=== PATIENT | female | born 2005 | race Caucasian/White ===

== ENCOUNTER 2023-07-26 18:31 | Emergency (ER) | payer SELFPAY ==
--- NOTE | ~2023-07-26 | US_ITS ---
EXAMINATION: US right upper quadrant DATE: 07/26/2023 23:00 INDICATION: Epigastric abdominal pain TECHNIQUE: Multiple grayscale and Doppler ultrasound images of the abdomen were obtained. COMPARISON: None available FINDINGS: Bowel gas obscures visualization of the pancreas. The visualized portions of the pancreas a re unremarkable. The liver is normal with normal echogenicity and echotexture. No surface nodularity. Normal hepatopetal flow in the main portal vein. There are multiple stones in the nondistended gallb ladder. No gallbladder wall thickening or pericholecystic fluid. The normal common bile duct measures 5 mm. Sonographic Mckeon sign is positive. IMPRESSION: 1. Cholelithiasis and positive sonographic Mckeon sign without additional findings of acute cholecyst itis. Consider nuclear hepatobiliary scan. Reviewed, dictated and finalized at location F. IMPRESSION: 1. Cholelithiasis and positive sonographic Mckeon sign without additional findi ngs of acute cholecystitis. Consider nuclear hepatobiliary scan.
[2023-07-26 18:38] VITALS: BP 150/73; PULSE 91; RESP 18; TEMP 36.4; O2SAT 100
[2023-07-26 21:16] VITALS: BP 146/67; PULSE 70; RESP 16; TEMP 36.6; O2SAT 100
--- NOTE | 2023-07-26 21:32 | ECG_ITS ---
Measurements Intervals [place] Rate: 78 P: 27 IN: 112 QRS: 64 QRSD: 93 T: 22 QT: 358 QTc: 409 Interpretive Statements SINUS RHYTHM WITH SHORT IN INTERVAL POSSIBLE LEFT ATRIAL ENLARGEMENT MINIMAL Q WAVES- INF/LAT LEADS BASELINE ARTIFACT- I, III, AVL BORDERLINE ECG NO PREVIOUS ECG AVAILABLE FOR COMPARISON Electronically Signed On 07-27-2023 6:37:02 CDT by Laith Rizvi D.O.
--- NOTE | 2023-07-26 21:33 | ED.ABDPAIN ---
HPI - Abdominal Pain General Chief Complaint: Abdominal Pain Stated Complaint: ABD PAIN X1D Time Seen by Provider: 07/26/23 20:32 History of Present Illness HPI narrative: 18-year-old female presents to the emergency department for intermittent epigastric abdominal pain for 1 year. Patient states the pain became bad last night after she had hot she does. She describes the pain as burning . Reports shortness of breath when she is under pain. denies known aggravating or alleviating factors. States she is currently having a small amount of pain but is not having chest pain or shortness of breath, no nausea vomiting, diarrhea, dysuria or hematuria, fever. Related Data Allergies Allergy/AdvReac Type Severity Reaction Status Date / Time No Known Allergies Allergy Verified 07/26/23 21:35 Review of Systems Review of Systems: CONSTITUTIONAL: Denies fever, chills, or sweats. EYES: Denies visual changes, redness, or discharge. ENT: Denies rhinorrhea, congestion, sore throat, or otalgia. CARDIOVASCULAR: Denies chest pain, palpitations, or edema. RESPIRATORY: Denies cough or dyspnea. GASTROINTESTINAL: See HPI GENITOURINARY: Denies dysuria or hematuria. SKIN: Denies rash or itching. MUSCULOSKELETAL: Denies back pain, joint pain, or myalgia. NEUROLOGIC: Denies headache, numbness, or weakness. PSYCHIATRIC: Denies anxiety or depression. Exam Narrative: GENERAL: Well-appearing, well-nourished, and in no acute distress. HEAD: Normocephalic, atraumatic. EYES: PERRLA and EOMI. ENT: Nares clear, no rhinorrhea or epistaxis. Mucous membranes moist. NECK: Supple. CHEST: Clear to auscultation. No respiratory distress. HEART: Regular rate and rhythm. No murmur heard. Normal peripheral pulses. ABDOMEN: Soft, nontender, nondistended, normal active bowel sounds. negative Mckeon's and McBurney's. No rebound, guarding or rigidity. No CVA tenderness. EXTREMITIES: Normal range of motion. No edema. SKIN: Warm, dry, no rash. NEURO: No focal deficits. Alert and oriented x3 Course Vital Signs Vital signs: Vital Signs Temperature 97.6 F 07/26/23 18:38 Pulse Rate 91 07/26/23 18:38 Respiratory Rate 18 07/26/23 18:38 Blood Pressure 150/73 H 07/26/23 18:38 Pulse Oximetry 100 07/26/23 18:38 Oxygen Delivery Room Air 07/26/23 18:38 Temperature 97.8 F 07/26/23 21:16 Pulse Rate 70 07/26/23 21:16 Respiratory Rate 16 07/26/23 21:16 Blood Pressure 146/67 H 07/26/23 21:16 Pulse Oximetry 100 07/26/23 21:16 Oxygen Delivery Room Air 07/26/23 18:38 MDM - Abdominal Pain MDM Narrative Medical decision making narrative: 18-year-old female presents to emergency department for intermittent epigastric burning year, worse after eating hot Cheetos last night. See HPI for further history. Triage vital significant for elevated blood pressure 150/73, otherwise unremarkable. She is afebrile and nontoxic on exam. Abdomen is soft and nontender. CBC with leukocytosis of 13.1, no bandemia. Chemistries remarkable for AST 166 and ALT of 98. states she drinks alcohol once or twice every other month. Alk-phos and bilirubin are normal. Right upper quadrant ultrasound obtained which shows cholelithiasis with positive sonographic Mckeon sign. No other findings of acute cholecystitis. Discussed case with surgery on-call who feels that the patient is asymptomatic she can follow-up outpatient. However if she remains symptomatic, may have been hospital for further evaluation. Upon re-evaluation, the patient still had tenderness in her epigastrium and started having symptom redness in her right upper quadrant. I recommended admission. Pt then eloped out of the apartment. Lab Data 07/26/23 22:08 07/26/23 22:08 Labs: Lab Results 07/26/23 07/27/23 Range/Units 22:08 00:13 WBC 13.1 H (4.5-10.0) K/mm3 RBC 4.93 (4.2-5.4) M/mm3 Hgb 14.0 (12.0-15.0) g/dL Hct 42.4 (37
[2023-07-26] MEDS: BELLADONNA ALK/PHENOB ELIX 10 ML, MAG HYDROX/ALUMINUM HYD/SIMETH 30 ML, LIDOCAINE HCL 2... PO (22:10)
[2023-07-26] MEDS: FAMOTIDINE 20 MG/2 ML VIAL IV PUSH (22:10)
[2023-07-26 22:14] LABS: Basophils Absolute Auto 0.1 K/mm3 (0.0-0.1); Basophils Percent Auto 0.4 % (0.2-1.2); Eosinophils Absolute Auto 0.1 K/mm3 (0-0.3); Eosinophils Percent Auto 0.5 % (0-4.4); Hematocrit 42.4 % (37.0-47.0); Immature Granulocyte Absolute 0.03 K/mm3 (0.00-0.031); Immature Granulocyte Percent A 0.2 % (0-0.5); Lymphocytes Absolute Auto 2.13 K/mm3 (0.9-3.2); Lymphocytes Percent Auto 16.3 % (18.3-44.2); Mean Corpuscular Hemoglobin 28.4 pg (26-34); Mean Platelet Volume 10.6 fl (7.4-10.4); Monocytes Absolute Auto 0.7 K/mm3 (0.1-0.6); Neutrophils Absolute Auto 10.2 K/mm3 (1.3-6.7); Neutrophils Percent Auto 77.6 % (45.5-73.1); Platelet Count Result 290 k/mm3 (150-375); Red Blood Count 4.93 M/mm3 (4.2-5.4); Red Cell Distribution Width 12.9 % (11.5-14.5); White Blood Count 13.1 K/mm3 (4.5-10.0)
[2023-07-26 22:25] LABS: Alanine Aminotransferase 98 U/L (6-35); Alkaline Phosphatase 102 U/L (38-126); Anion Gap 8 mmol/L (8-16); Aspartate Amino Transferase 166 U/L (14-36); Bilirubin,Total 0.7 mg/dL (0.2-1.3); Blood Urea Nitrogen 15 mg/dL (7-17); Calcium 10.8 mg/dL (8.4-10.2); Carbon Dioxide 24 mmol/L (22-30); Chloride 106 mmol/L (98-107); Estimated CRCL calculation 175 ml/min; Estimated Glomerular Filt Rate > 60; Glucose 102 mg/dL (65-110); Lipase 68 U/L (23-300); Potassium 3.9 mmol/L (3.4-5.0); Sodium 138 mmol/L (137-145)
[2023-07-26 23:30] VITALS: BP 146/87; PULSE 86; RESP 20; O2SAT 99
[2023-07-27 00:21] LABS: Appearance Urine Clear (Clear); Bacteria Urine None Seen /hpf; Bilirubin Urine Negative (Negative); Blood Urine Negative (Negative); Color Urine Yellow (Yellow); Glucose Urine UA Negative (Negative); Ketones Urine Negative (Negative); Leukocyte Esterase Ur 1+ LEU/UL (Negative); Nitrate Urine Negative (Negative); Non Pathogenic Casts 0-2; Protein Urine Negative (Negative); RBC Urine 0-2 /hpf (0-2); Specific Grav Ur 1.008 (1.001-1.035); Squamous Epithelial Cell Urine Occasional /hpf (Few); pH Urine 6.5 (5.0-9.0)
[2023-07-27 00:32] LABS: Add Urine Microscopic? YES
--- NOTE | 2023-07-27 01:05 | PC.NURSE ---
Pt comes to nursing station tearful stating that her son at home misses her and she just wants to go home. This RN tells her that we are only waiting on urine results. Pt tells me that no provider has been in to explain any of her results yet. This RN made JOHN Ortez aware. Neelima to bedside to speak with pt. Neelima informs me that pt wishes to leave. Pt alert and oriented x 4, in no obvious distress. Pt encouraged to return if symptoms persist or get worse.
== END 2023-07-27 01:00 | disposition left against medical advice (07) ==
PROVIDERS: Emergency Provider Physician Assistant
DX: K80.20 Calculus of gallbladder without cholecystitis without obstruction (principal); R10.11 Right upper quadrant pain; R94.31 Abnormal electrocardiogram [ECG] [EKG]
CPT/HCPCS: 36415; 76705; 80053; 83690; 85025; 87077; 87086; 87088; 93005; 96374; 99284; A9270

== ENCOUNTER 2024-04-21 16:19 | Outpatient (RCR) | payer OTHER, SELFPAY ==
--- NOTE | ~2024-04-21 | US_ITS ---
EXAMINATION: US OB follow up DATE: 04/21/2024 17:20 INDICATION: Assess position and dating of during third trimester TECHNIQUE: Real-time ultrasound of the pelvis was performed. The interpreting radiologist was not pre sent for the study. COMPARISON: None FINDINGS: There is a single living fetus in transverse lie with vertex to maternal left. The placenta is anteri or there is peripheral echogenicity suggesting calcification which is discordant with the provided es timated gestational age but consistent with the more advanced estimated gestational age based on biom etric data in the current study. heart rate is 187-199 beats per minute (bpm). The amniotic flu id volume is subjectively normal. The following biometric data were obtained: BPD: 9.5 cm -> 38 weeks 6 days Head circumference: 35.0 cm -> 40 weeks 4 days Abdominal circumference: 34.4 cm -> 38 weeks 2 days Femur length: 7.2 cm -> 36 weeks 6 days These measurements are concordant. Head circumference to abdominal circumference ratio: 1.02 (normal range 0.88-1.06). Estimated weight: 3457 g (+/-) 519 g or 7 lbs. 10 oz. (+/-) 1 lb. 2 oz. IMPRESSION: 1. Single living fetus in transverse lie with elevated heart rate of 187-[address] Meagan day notified of these findings at 5:00 PM. As requested patient was transferred to the labor and delive ry department for further monitoring. 2. Gestational age by ultrasound of 28 weeks 5 day(s) +/- 2 week(s) 5 day(s) with ultrasound estimate d date of delivery (IKER) of 04/30/2024. Estimated weight is >97th percentile by Hadlock criteri a when 05/31/2024 is used as the IKER. Please correlate with clinical information or earlier ultrasound s for most accurate IKER. Reviewed, dictated and finalized at location A. COVERY PROJECT MANAGER IMPRESSION: 1. Single living fetus in transverse lie with elevated heart rate of 187- [address] Rhodes was notified of these findings at 5:00 PM. As requested pat ient was transferred to the labor and delivery department for further monitorin g. 2. Gestational age by ultrasound of 28 weeks 5 day(s) +/- 2 week(s) 5 day(s) wi th ultrasound estimated date of delivery (IKER) of 04/30/2024. Estimated w eight is >97th percentile by Hadlock criteria when 05/31/2024 is used as the IKER . Please correlate with clinical information or earlier ultrasounds for most ac curate IKER.
--- NOTE | 2024-04-21 17:53 | PC.NURSE ---
1748: RN phone Dr. Hawkins to inform her that a patient of Dr. Matt was sent over from outpatient ultrasound due to FHTs being in the 190s. OB is aware of patient's G's and P's, gestational age, normal with no complications, that patient has not been feeling good today, patient is a smoker, and that patient is afebrile. RN reported FHT baseline ranging between 155-165 with moderate variability and accelerations. OB also aware that patient's blood pressure was 156/75 and a minute later it was 134/72, Orders to retake a blood pressure in 15 minuted. Orders to draw PI labs if patient's next blood pressure is >140/>90 or discharge patient home if it is a normal blood pressure. If patient is discahrged home RN received orders to discharge patient home with instructions to stop smoking and PO hydrate.
[2024-04-21 18:05] VITALS: BP 136/74; PULSE 99
--- OUTSIDE RECORDS SUMMARY | 2024-05-01 19:41 | XMS_ITS | Referral Summary ---
Author Organization [facility] Address [address] [place] [address] Care Team Providers Care Esthetics Instructor Name Role Phone Unavailable Primary Care Provider Unavailabl e Source Comments [facility],non-owned Affiliates and Associated Physician Practices is amultiple site organization consisting of ambulatory clinics and hospital sitesin [place], [place], [place] and [place]. This disclosure is being madepursuant to the Care Everywhere program and may not contain all information available regarding this patient. Last updated [email or web address] Allergies No known active allergies Medications Be aware that medications may not be up to date on this document. Always verify current medications with the patient. No known medications Active Problems Problem Noted Date Diagnosed Date Left tubo-ovarian abscess 09/26/2019 Assessment & Plan (09/27/2019 1:13 PM CDT): Assessment: Ynes is a 14 y/o sexually active female presenting with left tub-ovarian abscess (TOA). Females who are hemodynamically stable and abscess is <7cm can be treated initially with antibiotics alone to avoid surgical intervention. The cause of TOA can be ascending PID, but may also occur in the absence of PID. She requires admission for IV antibiotics to monitor for improvement, which will determine future intervention. Plan: - surgery evaluated patient and did not find need for surgical intervention at this time - IVF D5 NS w/ KCl @ 100ml/hr - Regular diet - Continue Cefoxitin 2g IV Q6h PLUS Doxycycline 100mg Q12h PO/IV - Tylenol/Ibuprofen for mild pain - I&Os - Vitals Q8h Assessment & Plan (09/26/2019 8:16 PM CDT): Assessment: Ynes is a 14 y/o sexually active female presenting with left tub-ovarian abscess (TOA). Females who are hemodynamically stable and abscess is <7cm can be treated initially with antibiotics alone to avoid surgical intervention. The cause of TOA can be ascending PID, but may also occur in the absence of PID. She requires admission for IV antibiotics to monitor for improvement, which will determine future intervention. Plan: Admit to General Pediatrics, Dr. Sparrow Surgery consulted and following, will notify with any acute changes IVF D5 NS w/ KCl @ 100ml/hr Regular diet Cefoxitin 2g IV Q6h PLUS Doxycycline 100mg Q12h PO/IV Tylenol/Ibuprofen for mild pain Consider oxycodone for moderate-severe pain I&Os Vitals Q8h Social History Tobacco Use Types Packs/Day Years Used Date Smoking Tobacco: Every Day Cigarettes Smokeless Tobacco: Never Sex and Gender Information Value Date Recorded Sex Assigned at Not on file Gender Identity Not on file Sexual Orientation Not on file Last Filed Vital Signs Vital Sign Reading Time Taken Comments Blood Pressure 121/67 09/28/2019 11:55 AM CDT Pulse 78 09/28/2019 11:55 AM CDT Temperature 36.6 ??C (97.9 ??F) 09/28/2019 11:55 AM C DT Respiratory Rate 18 09/28/2019 11:55 AM CDT Oxygen Saturation 98% 09/28/2019 3:10 AM CDT Inhaled Oxygen Concentration - - Weight 65.5 kg (144 lb 6.4 oz) 09/26/2019 8:15 P M CDT Height 172.7 cm (5' 8 ) 09/26/2019 8:15 PM CDT Body Mass Index 21.96 09/26/2019 8:15 PM CDT Functional Status Functional Status Response Date of Assess ment Is person deaf or have serious hearing difficult y? No 09/27/2019 Is person blind or have serious difficulty seein g? No 09/27/2019 Does person have serious dif ficulty walking/climbing stairs? No 09/27/2019 Does person have difficulty dressing/bathing? No 09/27/2019 Does person have difficulty doing errands alone? No 09/27/2019 Cognitive Status Response Date of Assessm ent Does person have difficulty concentrating/remembering/making decisions? No 09/27/2019 Plan of Treatment Not on file Procedures Procedure Name Priority Date/Time Associated Diagnosis Comments HIV-1 HIV-2 ANTIBODY + HIV P24 AG PANEL Timed 09/28/2019 11:54 AM CDT CHLAMYDIA + GC AMPLIFIED PROBE STAT 09/26/2019 6:41 PM CDT from Last 3 Months or Most Recently Relevant to Health Maintenance Results * HIV-1 HIV-2 ANTIBODY + HIV P24 AG PANEL (09/28/2019 11:54 AM CDT) Pathologist [facility] HIV1/2 Ab + P24 Ag Non Reactive Non Reactive 09/28/2019 1:00 PM CDT [facility] Blood BLOOD SPECIMEN / Unknown Venipuncture / Unknown 09/28/2019 11:54 AM CDT 09/28/2019 12:08 PM CDT Narrative [facility] - 09/28/2019 1:00 PM CDT No Laboratory evidence of HIV infection. Nataliya Alvarez MD LAB - CHEMISTRY [place] [facility] [address] [place] [id number] * (ABNORMAL) CHLAMYDIA + GC AMPLIFIED PROBE (STL) (09/26/2019 6:41 PM CDT) [facility] Chlamydia Amplified Probe Positive( A) Negative 09/30/2019 2:44 PM CDT [facility] GC Amplified Probe Positive( A) Negative 09/30/2019 2:44 PM CDT [facility] Microbiology URINE / Unknown Collection / Unknown 09/26/2019 6:41 PM CDT 09/26/2019 6:45 PM CDT Narrative [facility] - 09/30/2019 2:44 PM CDT Results based on detection/no detection of ribosomal RNA by amplified method. Rosangela Hutchinson MD LAB - MICROBIOLOGY O RDERABLES [facility] [address] [place], [place] [address] [[email or web address]] [phone] from Last 3 Months or Most Recently Relevant to Health Maintenance Advance Directives * Full Code (Latest Code Status on File) Date Activated Date Inactivated Comments 09/26/2019 8:15 PM 09/28/2019 3:23 PM
--- OUTSIDE RECORDS SUMMARY | 2024-05-01 19:41 | XMS_ITS | Encounter Summary ---
Author Organization [facility] Address [address] [place] [address] Care Team Providers Care Dust Collector Treater Name Role Phone Unavailable Primary Care Provider Unavailabl e Reason for Visit * Reason Onset Date Comments Follow-up 10/01/2019 Encounter Details Date Type Department Care Team (Late st Contact Info) Description 10/01/2019 Telephone [facility] - [facility] rider [facility] [place] [address] Felicia Donnelly RN Follow-up Social History Tobacco Use Types Packs/Day Years Used Date Smoking Tobacco: Every Day Cigarettes Smokeless Tobacco: Never Sex and Gender Information Value Date Recorded Sex Assigned at Not on file Gender Identity Not on file Sexual Orientation Not on file documented as of this encounter Functional Status Functional Status Response Date of [...] person have difficulty concentrating/remembering/making decisions? No 09/27/2019 documented as of this encounter Miscellaneous Notes * Telephone Encounter - Felicia Donnelly RN - 10/01/2019 12:05 PM CDT Called mom to f/u on child's recent admission for tubo-ovarian cyst. It was recommended that she f/u with a fur weigher at [facility] in [place] or with Dr. Chloe Forte. Jose melo is doing well and has an appointment scheduled at [facility] in the next week. Will schedule all f/u services with them. Appreciative of follow up call documented in this encounter Plan of Treatment Not on file documented as of this encounter Visit Diagnoses Not on filedocumented in this encounter
--- OUTSIDE RECORDS SUMMARY | 2024-05-01 19:41 | XMS_ITS | Encounter Summary ---
Author Organization [facility] Address [address] [place] [address] [place] [address] Care Team Providers Care Studio Producer Name Role Phone Unavailable Primary Care Provider Unavailabl e Reason for Visit * Reason Comments Abscess Access Note: 14 yo female coming by amb from [facility] for lower abd pain x1 month, today pain is severe, Labs and imaging done. CT and US. 13.7 wbc, has a uti, 10-20 wbc in urine leukocytes, CT showed 4.4 cm solid mass around left ovary. US sone 2.7 rounded ovarian abscess. IV abx ordered. Pt arrives awake and alert. Denies pain in triage. * Auth/Cert Specialty Diagnoses / Procedures Referred By Contac t Referred To Contact Referral ID Status Reason Start Date Expiration Date Visits Re quested Visits Authorized [id number] 1 1 Encounter Details Date Type Department Care Team (Latest Contact Info) Description 09/26/2019 12:06 PM CDT - 09/28/2019 2:23 PM CDT Hospital Encounter CG 4 N HEM/ONC [address] [place] [address]. [place] [address] Katrin Rivas MD [address] [place] [address] [place] [address] Steven Sparrow MD [address] [place] [id number] Pediatrics Discharge Disposition: Home or Self Care Social History Tobacco Use Types Packs/Day Years Used Date Smoking Tobacco: Every Day Cigarettes Smokeless Tobacco: Never Sex and Gender Information Value Date Recorded Sex Assigned at Not on file Gender Identity Not on file Sexual Orientation Not on file documented as of this encounter Last Filed Vital Signs Vital Sign Reading Time Taken Comments Blood Pressure 121/67 09/28/2019 11:55 AM CDT Pulse 78 09/28/2019 11:55 AM CDT Temperature 36.6 ??C (97.9 ??F) 09/28/2019 1 1:55 AM CDT Respiratory Rate 18 09/28/2019 11:5 5 AM CDT Oxygen Saturation 98% 09/28/2019 3:10 AM CDT Inhaled Oxygen Concentration - - Weight 65.5 kg (144 lb 6.4 oz) 09/26/2019 8:15 P M CDT Height 172.7 cm (5' 8 ) 09/26/2019 8:15 PM CDT Body Mass Index 21.96 09/26/2019 8:15 PM CDT Body Mass Index Percentile 64.67% 09/26/2019 8:1 5 PM CDT Growth Chart: [facility] (Girls, 2- 20 Years) documented in this encounter Functional Status Functional Status Response [...] No 09/27/2019 documented as of this encounter Discharge Summaries * Steven Sparrow MD - 09/28/2019 1:29 PM CDT Images from the original note were not included. Pediatric Discharge Summary Attending Physician: Steven Sparrow MD Office 09/28/2019 1:29 PM Pt. Name: Ynes Phelps : 2005 Attending Physician : Steven Sparrow MD Admission Date: 09/26/2019 Discharge Date: 09/30/2019 Hospital Course Ynes is a 14yo F with no significant PMHx who presents for concerning 4.4cm L ovarian abscess onCT and US, found during episode of abdominal pain which is now resolved. Ynes was admitted for IV antibiotics (cefoxitin and doxycycline) and to monitor vitals and status. Her pain quickly improved and she remained afebrile over course of admission. She remained stable and was successfully transitioned to PO antibiotics. She will be going home on 13 days of levaquin and metronidazole PO. Trichomonas was negative and G/C is still pending. HIV Antibody was negative. RPR was negative. We are planning to call her with these results on her cellphone. If any outpatient provider would like to contact the hospital team to follow up on the STI testing results, the [facility] Inpatient Purple Team Pager is [phone]. Patient cell phone number [phone]. She is okay with parents beingaware/notified of the STI screening results. Can call Mom with STI screening results at Mom's phonenumber [phone]. She needs to follow up with gynecology outpatient within the next 12 days after discharge before her antibiotic regimen runs out, for continued monitoring of the tubo-ovarian abscess without evidence of PID and for gynecology to determine whether her antibiotic regimen needs tram extended beyond the total 14 days course. Of note, patient evaluated by peds surgery team and nosurgical intervention indicated during admission given good response to IV abx. ID also consulted on plan for PO abx with follow up. Discharge Diagnosis(es) Active Problems: Left tubo-ovarian abscess Resolved Problems: * No resolved hospital problems. * Condition on Discharge: Stable Consultations: General Surgery, ID Diagnostic studies: - See Hospital Course Procedures: See Hospital Course Relevant Labs: WBC downtrending from 13 at OSH to now 8. Consistent with clinical improvement. Discharge Physical Exam VS: BP 121/67 Pulse 78 Temp 97.9 ??F (Oral) Resp 18 Ht 1.727 m (5' 8 ) Wt 65.5 kg (144 lb 6.4 oz) SpO2 98% BMI 21.96 kg/m2 Height: 172.7 cm (5' 8 ) 94 %ile (Z= 1.54) based on CDC (Girls, 2-20 Years) [id number]-zvb data based on Stature recorded on 09/26/2019. Weight: 65.5 kg (144 lb 6.4 oz) 83 %ile (Z= 0.95) based on CDC (Girls, 2-20 Years) zanofx-uax-xog data using vitals from 09/26/2019. (Patient seen 09/28/2019 1:25 PM) General: awake, alert, no apparent distress, talkative, eating Head: normocephalic Eyes: Conjunctiva: conjunctiva normal Discharge: none Nose: normal Mouth / Oropharynx: Mucous membranes: moist Neck: Tenderness to palpation: None Cardiovascular: Rate: regular Rhythm: regular Heart sounds: normal S1, normal S2 Pulmonary: Auscultation: clear to auscultation Aeration: good aeration Wheezes: none Respiratory effort: no respiratory distress Abdominal: soft, flat Tenderness: none Distention: none HSM / Masses: no hepatosplenomegaly Musculoskeletal: Upper extremities: Swelling: none Lower extremities: Swelling: none Skin: Temp / Texture: warm Neurological: Tone: normal Pending Results Unresulted Labs (From admission, onward) Start Ordered 09/26/191814 CHLAMYDIA + GC AMPLIFIED PROBE (STL) ONCE 09/26/191809 Discharge Medications Current Discharge Medication List START taking these medications Instructions Authorizing Provider levoFLOXacin 500 MG tablet Commonly known as: LEVAQUIN Quantity Dispensed: 13 tablet Take 1 tablet by mouth once daily for 13 days Nataliya Alvarez MD metroNIDAZOLE 500 MG tablet Commonly known as: FLAGYL Quantity Dispensed: 26 tablet Take 1 tablet by mouth 2 times daily for 13 days Nataliya Alvarez MD Discharge Procedure Orders Why you were hospitalized Order Specific Question Answer Comments Your discharge diagnosis is: Tubo-ovarian abscess [785595] No special diet needed Resume normal home diet as tolerated. Activity as tolerated Rest today, and increase activity level tomorrow as tolerated. When to call provider Call Ynes's Personalized Living Manager Nurse if you have questions or concerns, or for any of the following issues: -- increased shortness of breath -- for pain that gets worse or does not get better after taking pain medication(s) as directed -- if you see a lot of bleeding from the incision or IV site -- if the incision or IV site looks infected (red, swollen, warm to the touch, or non-clear, foul-smelling drainage) -- if Ynes has nausea or vomiting or cannot eat or drink Follow up with provider If you are not able to follow up with a thermo cementing folder operator at [place], then you may follow up with Dr. Forte who is our pediatric thermo cementing folder operator. To make an appointment call [phone]. She needs to follow up with thermo cementing folder operator within 12 days before her antibiotics . Another alternative is to follow up with [facility], phone number is: . Please follow up soon with [facility] within the next 12 days before your antibiotics . Order Specific Question Answer Comments Follow Up Instructions: Please follow up with a thermo cementing folder operator for your tubo- ovarian abscess. You can[facility] with [facility] [place] [facility] in [place] Follow up with provider Order Specific Question Answer Comments Follow Up Instructions: Please follow up with your primary care provider within the next 7 days, orsooner if you are feeling worse. Nataliya Alvarez MD CC: No primary care provider on file. No primary physician on file. Phone: None Fax: None Pediatric Teaching Attending Attestation I have seen and evaluated the patient on the day of discharge during rounds. I have spoken with thepatient/patient's family and the resident team and have confirmed/revised the hospital course and physical exam, and diagnostic study findings of the resident as reflected in the above note. Discharge instructions and possible reasons to contact the PCP or to return to the ED were discussed with the family. Please refer to the team resident note for details. Steven Sparrow MD documented in this encounter Discharge Instructions * Discharge Instructions* Hailee Becker RN - 09/28/2019 12:54 PM CDT If your child has any worsening of his or her condition, please call your primary care doctor (or their exchange if after hours) or return to the ED if your primary care doctor cannot be reached. documented in this encounter Medications at Time of Discharge Medication Sig Dispensed Refills Start Date End Date levoFLOXacin (LEVAQUIN) 500 MG tablet Take 1 tablet by mouth once daily for 13 days 13 tablet 09/28/2019 10/11/2019 metroNIDAZOLE (FLAGYL) 500 MG tablet Take 1 tablet by mouth 2 times daily for 13 days 26 tablet 09/28/2019 10/11/2019 documented as of this encounter Progress Notes * Hailee Becker RN - 09/28/2019 2:20 PM CDT Discharge instructions received and reviewed with dad. Dad verbalized understanding of all instructions given and voiced no questions or concerns. Dad and pt escorted to hospital exit. * Nataliya Alvarez MD - 09/28/2019 1:23 PM CDT Condition on Discharge: Stable Consultations: General Surgery Diagnostic studies: - See Hospital Course Procedures: See Hospital Course Relevant Labs: WBC downtrending from 13 at OSH to now 8. Consistent with clinical improvement. Discharge Physical Exam VS: BP 121/67 Pulse 78 Temp 97.9 ??F (Oral) Resp 18 Ht 1.727 m (5' 8 ) Wt 65.5 kg (144 lb 6.4 oz) SpO2 98% BMI 21.96 kg/m2 Height: 172.7 cm (5' 8 ) 94 %ile (Z= 1.54) based on CDC (Girls, 2-20 Years) Hefquvi-yqo-uov data based on Stature recorded on 09/26/2019. Weight: 65.5 kg (144 lb 6.4 oz) 83 %ile (Z= 0.95) based on CDC (Girls, 2-20 Years) falghn-bpl-rlz data using vitals from 09/26/2019. (Patient seen 09/28/2019 1:25 PM) General: awake, alert, no apparent distress, talkative, eating Head: normocephalic Eyes: Conjunctiva: conjunctiva normal Discharge: none Nose: normal Mouth / Oropharynx: Mucous membranes: moist Neck: Tenderness to palpation: None Cardiovascular: Rate: regular Rhythm: regular Heart sounds: normal S1, normal S2 Pulmonary: Auscultation: clear to auscultation Aeration: good aeration Wheezes: none Respiratory effort: no respiratory distress Abdominal: soft, flat Tenderness: none Distention: none HSM / Masses: no hepatosplenomegaly Musculoskeletal: Upper extremities: Swelling: none Lower extremities: Swelling: none Skin: Temp / Texture: warm Neurological: Tone: normal * Alli Garcia MD - 09/27/2019 3:09 PM CDT Pediatric Surgery Progress Note DATE: 09/27/2019 Patient Name: Ynes Phelps : 2005 Admit Date: 09/26/2019 12:06 PM Hospital Day: Hospital Day: 1 History: Ynes Phelps is a 14 year old female with lower abdominal pain for 1 month that is dull and achey, worsened by her period or movement, and has no other alleviating or associated factors. Pain has progressively worsened until FOC and pt decided to present to OSH. ?? Workup done at OSH significant for mild leukocytosis of 13.7 with 75% PMNs, CT abdomen pelvis with 4.4cm solid-appearing structure in the left adnexa, pelvic u/s with no concerns for torsion. Subjective: - No acute events overnight - Pain improved this AM. Objective: Diet: DIET REGULAR Input and Output: IO last 3 completed shifts In: 1493 (22.8 mL/kg) [P.O.:320; I.V.:1173 (0.5 mL/kg/hr)] Out: 560 (8.5 mL/kg) [Urine:560 (0.2 mL/kg/hr)] Net: 933 Weight: 65.5 kg Vital Signs: Temp: [98.1 ??F-98.6 ??F] Pulse: [66-88] Resp: [16-18] BP: (104-126)/(46-72) SpO2: [97 %-100 %] Physical Exam: Gen: NAD HEENT: AT/NC, EOMI, oropharynx clear CV: RRR Pulm: Nonlabored respirations Abd: Soft, mildly tender in bilateral lower quadrants, R worse than L, non-peritonitic MSK: WWP, no c/c/e Neuro: Moving all extremities spontaneously, no focal deficits Psych: Appropriate mood and affect Labs: No results for input(s): WBC, HGB, HCT, PLTCOUNT in the last 17817 hours. No results for input(s): SODIUM, POTASSIUM, CHLORIDE, CO2, BUN, CREATININE, GLUCOSE, CALCIUM in thelast 88953 hours. Cultures: Trichamonas swab -ve Assessment: Ynes Phelps is a 14 year old female with likely tubo-ovarian abscess. Recommendations: - agree with diet, antibiotics - Please obtain Ped educational programming director consultation. - no surgical intervention at this time - please contact Pediatric Surgery with any questions or concerns. Nino Patel MD 09/27/2019 3:19 PM ATTENDING ATTESTATION I examined the patient and interviewed the patient and the patient's nursing staff on 09/27/2019. I have reviewed the patient's imaging studies and laboratory values. I have reviewed the care provider's note. I have edited the note where appropriate and agree with management and plan outlined in thenote. 14yF with tubo-ovarian abscess. Continue Abd. No operative intervention needed at this time. Will defer outpatient management to Pediatric Gynocology Service. . Anjel Garcia MD Pediatric Surgery * Graciela Sierra DO - 09/27/2019 1:13 PM CDT Images from the original note were not included. Pediatric Progress Note 09/27/2019 1:13 PM Assessment & Plan Left tubo-ovarian abscess Assessment: Ynes is a 14 y/o sexually active female presenting with left tub- ovarian abscess (TOA). Females who are hemodynamically stable [...] mild pain - I&Os - Vitals Q8h Subjective / Objective Clinical Course No acute events overnight. VSS. Denies pain today. Physical Exam VS: BP 105/51 Pulse 70 Temp 98.1 ??F (Oral) Resp 16 Wt 65.5 kg (144 lb 6.4 oz) General: awake, alert, no apparent distress, talkative Head: normocephalic Eyes: Conjunctiva: conjunctiva normal Scleral icterus: absent Ears: External ears: normal Nose: normal Mouth / Oropharynx: Mucous membranes: moist Oral cavity: normal Oropharynx: normal Cardiovascular: Rate: regular Rhythm: regular Heart sounds: normal S1, normal S2 Murmur: no murmur Pulses: Radial: R - 2+, L - 2+ Capillary refill: < 2 seconds Pulmonary: Auscultation: clear to auscultation Aeration: good aeration Rales: no crackles Respiratory effort: no respiratory distress Abdominal: soft, flat Tenderness: left low quadrant (to deep palpation only) Distention: none Bowel sounds: normal HSM / Masses: no hepatosplenomegaly, no masses Skin: Temp / Texture: warm Color: normal Rash: none Neurological: Orientation: oriented to person, place and time Movement: no abnormal movements Strength: normal Labs / Results Recent Results (from the past 24 hour(s)) TRICHOMONAS RAPID TEST Collection Time: 09/26/19 6:41 PM Result Value Ref Range Trichomonas Rapid Test Negative Negative G/C pending. Graciela Sierra DO Associated attestation - Steven Sparrow MD - 09/27/2019 1:44 PM CDT Attending Physician Supervisory Note Patient was seen and examined. I saw the patient with the resident, Dr. Greene agree with the resident's findings and plan. Drayden did well overnight. Afebrile. Pain improved. Taking good PO. No new complaints. Constitutional: Awake, alert, NAD Heart: normal S1/S2, no murmur, well perfused and not toxic. Lungs: Clear to Auscultation Bilaterally, not in distress. Abd: Soft, not particularly tender, non-distended, Normal bowel sounds, no organomegaly MSK: Moves all extremities well, no peripheral edema, no pain to palpation Neuro: Awake and alert. : No CVA tenderness. Skin: No bleeding or bruising. Labs: No new labs to review. A/P: I agree with resident Dr. Sierra, continues to require admission for IV abx - but thus far seemsto have had a good response to this therapy. See below for more details. Steven Sparrow MD 09/27/2019 * Graciela Sierra DO - 09/27/2019 1:09 PM CDT Clinical Course No acute events overnight. VSS. Denies pain today. Physical Exam VS: BP 105/51 Pulse 70 Temp 98.1 ??F (Oral) Resp 16 Wt 65.5 kg (144 lb 6.4 oz) General: awake, alert, no apparent distress, talkative Head: normocephalic Eyes: Conjunctiva: conjunctiva normal Scleral icterus: absent Ears: External ears: normal Nose: normal Mouth / Oropharynx: Mucous membranes: moist Oral cavity: normal Oropharynx: normal Cardiovascular: Rate: regular Rhythm: regular Heart sounds: normal S1, normal S2 Murmur: no murmur Pulses: Radial: R - 2+, L - 2+ Capillary refill: < 2 seconds Pulmonary: Auscultation: clear to auscultation Aeration: good aeration Rales: no crackles Respiratory effort: no respiratory distress Abdominal: soft, flat Tenderness: left low quadrant (to deep palpation only) Distention: none Bowel sounds: normal HSM / Masses: no hepatosplenomegaly, no masses Skin: Temp / Texture: warm Color: normal Rash: none Neurological: Orientation: oriented to person, place and time Movement: no abnormal movements Strength: normal Labs / Results Recent Results (from the past 24 hour(s)) TRICHOMONAS RAPID TEST Collection Time: 09/26/19 6:41 PM Result Value Ref Range Trichomonas Rapid Test Negative Negative G/C pending. * Nataliya Alvarez MD - 09/27/2019 1:09 PM CDT Ynes is a 14yo F with no significant PMHx who presents for concerning 4.4cm L ovarian abscess onCT and US, found during episode of abdominal pain which is now resolved. Ynes was admitted for IV antibiotics (cefoxitin and doxycycline) and to monitor vitals and status. She remained stable, andwas successfully transitioned to PO antibiotics. She will be going home on 13 days of levaquin and metronidazole PO. Trichomonas was negative and G/C is still pending. HIV Antibody and RPR were also drawn and are still pending, and need to be followed up on. We are planning to call her with these results on her cellphone. If any outpatient provider would like to contact the hospital team to follow up on the STI testing results, the [facility] Purple Team Pager is [phone]. Patient cell phone number [phone]. She needs to follow up with gynecology outpatient within the next 12 days after discharge before her antibiotic regimen runs out, for continued monitoring of thetubo-ovarian abscess without evidence of PID and for gynecology to determine whether her antibiotic regimen needs to be extended beyond the total 14 days course. * Francesca Wilson - 09/26/2019 8:16 PM CDT Chief Complaint Abscess (Access Note: 14 yo female coming by amb from [facility] ER for lower abd pain x1 month, today pain is severe, Labs and imaging done. CT and US. 13.7 wbc, has a uti, 10-20 wbc in urine leukocytes, CT showed 4.4 cm solid mass around left ovary. US sone 2.7 rounded ovarian abscess. IV abx ordered. Pt arrives awake and alert. Denies pain in triage.) History of Present Illness History provided by: Patient Ynes is a 14 y/o female with no significant PMH who presents with concerns for ovarian abscess. She states that she has had intermittent lower abdominal pain for at least the past month. The pain comes and goes. She has tried taking tylenol, which she feels did not help very much. There are really no exacerbating or relieving factors. She denies any dysuria, vaginal discharge, burning, frequency, or urgency. Pain not related to bowel movements or urination. She states that she typically has a bowel movement daily. She is sexually active and is not on any form of control with inconsistent condom use. No history of STDs. She denies any fevers. She denies any associated vomiting or diarrhea. No relation to food. She has regular periods that come every month. They usually last 5-7 days. She is currently on day 4 of her current mentrual cycle. She does have heavy bleeding and painful cramping. She was on control in the past, but did not like the way it made her feel. She presented initially to an OSH, where she had labs and imaging performed. Mild leukocytosis noted with WBC of 13. UA demonstrated WBCs. CT showed 4.4 cm solid mass around left ovary. US done and demonstrated 2.7 rounded ovarian abscess. She was transferred to ED for further evaluation and surgical consultation. She was then admitted for IV antibiotics and serial exams. Review of Systems Constitutional: (-) fever, (-) appetite change, (-) weight loss, (-) weight gain Eyes: (-) visual change ENT: Nose: (-) rhinorrhea, (-) congestion Throat: (-) mouth sores, (-) sore throat Cardiovascular: (-) chest pain, (-) syncope Respiratory: (-) cough Gastrointestinal: (-) nausea, (-) vomiting, (-) diarrhea, (-) constipation, (-) poor appetite Genitourinary: (-) decreased urine output, (-) frequency, (-) dysuria, (-) urgency, (-) hematuria, (-) vaginal discharge, (-) non-menstrual bleeding Musculoskeletal: (-) pain Skin: (-) rash Neurological: (-) headaches Allergy/Immunology: (-) seasonal allergies Physical Exam VS: BP 104/58 Pulse 88 Temp 98.2 ??F (Oral) Resp 16 Ht 1.727 m (5' 8 ) Wt 65.5 kg (144 lb 6.4 oz) SpO2 99% BMI 21.96 kg/m2 Height: 172.7 cm (5' 8 ) 94 %ile (Z= 1.54) based on CDC (Girls, 2-20 Years) Usvvlfb-yde-cll data based on Stature recorded on 09/26/2019. Weight: 65.5 kg (144 lb 6.4 oz) 83 %ile (Z= 0.95) based on CDC (Girls, 2-20 Years) hfnwkk-hoe-uot data using vitals from 09/26/2019. General: awake, alert, no apparent distress, talkative Head: normocephalic Eyes: Conjunctiva: conjunctiva normal Scleral icterus: absent Ears: External ears: normal Nose: normal Mouth / Oropharynx: Mucous membranes: moist Oral cavity: normal Oropharynx: normal Cardiovascular: Rate: regular Rhythm: regular Heart sounds: normal S1, normal S2 Murmur: no murmur Pulses: Radial: R - 2+, L - 2+ Capillary refill: < 2 seconds Pulmonary: Auscultation: clear to auscultation Aeration: good aeration Rales: no crackles Respiratory effort: no respiratory distress Abdominal: soft, flat Tenderness: none Distention: none Bowel sounds: normal HSM / Masses: no hepatosplenomegaly, no masses Skin: Temp / Texture: warm Color: normal Rash: none Neurological: Orientation: oriented to person, place and time Movement: no abnormal movements Strength: normal Labs / Results CBC with leukocytosis (WBC 13.7) and neutrophil predominance (75.6) CMP wnl UA with blood, leukocytes, protein, ketones (currently menstruating) Urine hcg negative CT abdomen/pelvis with 4.4 cm solid appearing structure correlating with the area of the left ovary, this could relate to an enlarged left ovary or a left ovarian mass. US pelvic: left ovary with tubular lobulated complex structure which demonstrates some motility, the appearence is suggestive for that of a tubo- ovarian abscess. documented in this encounter H&P Notes * Francesca Wilson - 09/26/2019 9:49 PM CDT Images from the original note were not included. Pediatric Admission Note 09/26/2019 9:49 PM Chief Complaint Abscess (Access Note: 14 yo female coming by amb from [facility] ER for lower abd pain x1 month, today pain is severe, Labs and imaging done. CT and US. 13.7 wbc, has a uti, 10-20 wbc in urine leukocytes, CT showed 4.4 cm solid mass around left ovary. US sone 2.7 rounded ovarian abscess. IV abx ordered. Pt arrives awake and alert. Denies pain in triage.) History of Present Illness History provided by: Patient Ynes is a 14 y/o female with no significant PMH who presents with concerns for ovarian abscess. She states that she has had intermittent lower abdominal pain for at least the past month. The pain comes and goes. She has tried taking tylenol, which she feels did not help very much. There are really no exacerbating or relieving factors. She denies any dysuria, vaginal discharge, burning, frequency, or urgency. Pain not related to bowel movements or urination. She states that she typically has a bowel movement daily. She is sexually active and is not on any form of control with inconsistent condom use. No history of STDs. She denies any fevers. She denies any associated vomiting or diarrhea. No relation to food. She has regular periods that come every month. They usually last 5-7 days. She is currently on day 4 of her current mentrual cycle. She does have heavy bleeding and painful cramping. She was on control in the past, but did not like the way it made her feel. She presented initially to an OSH, where she had labs and imaging performed. Mild leukocytosis noted with WBC of 13. UA demonstrated WBCs. CT showed 4.4 cm solid mass around left ovary. US done and demonstrated 2.7 rounded ovarian abscess. She was transferred to ED for further evaluation and surgical consultation. She was then admitted for IV antibiotics and serial exams. Review of Systems Constitutional: (-) fever, (-) appetite change, (-) weight loss, (-) weight gain Eyes: (-) visual change ENT: Nose: (-) rhinorrhea, (-) congestion Throat: (-) mouth sores, (-) sore throat Cardiovascular: (-) chest pain, (-) syncope Respiratory: (-) cough Gastrointestinal: (-) nausea, (-) vomiting, (-) diarrhea, (-) constipation, (-) poor appetite Genitourinary: (-) decreased urine output, (-) frequency, (-) dysuria, (-) urgency, (-) hematuria, (-) vaginal discharge, (-) non-menstrual bleeding Musculoskeletal: (-) pain Skin: (-) rash Neurological: (-) headaches Allergy/Immunology: (-) seasonal allergies Physical Exam VS: BP 104/58 Pulse 88 Temp 98.2 ??F (Oral) Resp 16 Ht 1.727 m (5' 8 ) Wt 65.5 kg (144 lb 6.4 oz) SpO2 99% BMI 21.96 kg/m2 Height: 172.7 cm (5' 8 ) 94 %ile (Z= 1.54) based on CDC (Girls, 2-20 Years) [id number] data based on Stature recorded on 09/26/2019. Weight: 65.5 kg (144 lb 6.4 oz) 83 %ile (Z= 0.95) based on [facility] (Girls, 2-20 Years) [id number] data using vitals from 09/26/2019. General: awake, alert, no apparent distress, talkative Head: normocephalic Eyes: Conjunctiva: conjunctiva normal Scleral icterus: absent Ears: External ears: normal Nose: normal Mouth / Oropharynx: Mucous membranes: moist Oral cavity: normal Oropharynx: normal Cardiovascular: Rate: regular Rhythm: regular Heart sounds: normal S1, normal S2 Murmur: no murmur Pulses: Radial: R - 2+, L - 2+ Capillary refill: < 2 seconds Pulmonary: Auscultation: clear to auscultation Aeration: good aeration Rales: no crackles Respiratory effort: no respiratory distress Abdominal: soft, flat Tenderness: none Distention: none Bowel sounds: normal HSM / Masses: no hepatosplenomegaly, no masses Skin: Temp / Texture: warm Color: normal Rash: none Neurological: Orientation: oriented to person, place and time Movement: no abnormal movements Strength: normal Labs / Results CBC with leukocytosis (WBC 13.7) and neutrophil predominance (75.6) CMP wnl UA with blood, leukocytes, protein, ketones (currently menstruating) Urine hcg negative CT abdomen/pelvis with 4.4 cm solid appearing structure correlating with the area of the left ovary, this could relate to an enlarged left ovary or a left ovarian mass. US pelvic: left ovary with tubular lobulated complex structure which demonstrates some motility, the appearence is suggestive for that of a tubo- ovarian abscess. History Past Medical History: Diagnosis Date ??? No known problems Past Surgical History: Procedure Laterality Date ??? NEGATIVE SURGICAL HISTORY Family History Problem Relation Name Age of Onset ??? Cancer - Ovarian Neg Hx ??? Cancer - Breast Neg Hx Social History Tobacco Use ??? Smoking status: Current Every Day Smoker Packs/day: 0.25 Types: Cigarettes ??? Smokeless tobacco: Never Used Substance Use Topics ??? Alcohol use: Not on file ??? Drug use: Yes Frequency: 7.0 times per week Types: Marijuana Social History Social History Narrative ??? Not on file No history on file. Allergies Patient has no known allergies. Immunizations stated as current, but no records available Medications Prior to Visit Assessment & Plan Left tubo-ovarian abscess Assessment: Ynes is a 14 y/o sexually active female presenting with left tub- ovarian abscess (TOA). Females who are hemodynamically stable [...] oxycodone for moderate-severe pain I&Os Vitals Q8h Francesca Wilson MD Associated attestation - Steven Sparrow MD - 09/27/2019 1:30 PM CDT Images from the original note were not included. Attending Attestation Date of Service: 09/27/2019 Ynes was seen, examined, and her condition discussed on rounds with the resident/student team. In brief, previously healthy 14 year old female presenting with abdominal pain and likely left tuboovarian abscess. Exam: My exam is as noted in Progress Note from today (09/27/2019). The treatment plan was discussed with team and is as noted in updated Assessment & Plan in Progress Note from today (09/27/2019). Steven Sparrow MD documented in this encounter Consult Notes * David Conn MD - 09/26/2019 3:49 PM CDTAssociated Order(s): IP CONSULT TO PEDIATRIC SURGERY Pediatric Surgery Consult Note Encounter Date: 09/26/2019 Ynes Phelps is a 14 year old female who was referred by [facility] ED for evaluation of abdominal pain,possible tubo-ovarian abscess Patient Identification Patient's Primary Care Physician: No primary care provider on file. Name: Ynes Phelps Age: [age] year old Sex: female Patient information was obtained from patient. History/Exam limitations: none. Patient presented to [facility] ED as transfer from OSH ([facility] [place]). Chief Complaint/Reason for Consult: Abscess (Access Note: 14 yo female coming by amb from [facility] for lower abd pain x1 month, today pain is severe, Labs and imaging done. CT and US. 13.7 wbc, has a uti, 10-20 wbc in urine leukocytes, CT showed 4.4 cm solid mass around left ovary. US sone 2.7 rounded ovarian abscess. IV abx ordered. Pt arrives awake and alert. Denies pain in triage.) History of Present Illness: Ynes Phelps is a 14 year old female with lower abdominal pain for 1 month that is dull and achey, worsened by her period or movement, and has no other alleviating or associated factors. Pain has progressively worsened until [facility]OC and pt decided to present to OSH. Workup done at OSH significant for mild leukocytosis of 13.7 with 75% PMNs, CT abdomen pelvis with 4.4cm solid-appearing structure in the left adnexa, pelvic u/s with PMH: No chronic illnesses Meds: No daily meds Allergies: no known drug allergies PSH: No surgeries SocHx: Sexually active, no control or prophylactic use No past medical history on file. No current facility-administered medications on file prior to encounter. No current outpatient medications on file prior to encounter. No Known Allergies No past surgical history on file. Social History Socioeconomic History ??? Marital status: Single Spouse name: Not on file ??? Number of children: Not on file ??? Years of education: Not on file ??? Highest education level: Not on file Occupational History ??? Not on file Social Needs ??? Financial resource strain: Not on file ??? Food insecurity Worry: Not on file Inability: Not on file ??? Transportation needs Medical: Not on file Non-medical: Not on file Tobacco Use ??? Smoking status: Current Every Day Smoker Packs/day: 0.25 Types: Cigarettes ??? Smokeless tobacco: Never Used Substance and Sexual Activity ??? Alcohol use: Not on file ??? Drug use: Yes Frequency: 7.0 times per week Types: Marijuana ??? Sexual activity: Not on file Lifestyle ??? Physical activity Days per week: Not on file Minutes per session: Not on file ??? Stress: Not on file Relationships ??? Social connections Talks on phone: Not on file Gets together: Not on file Attends hoahaoism service: Not on file Active member of club or organization: Not on file Attends meetings of clubs or organizations: Not on file Relationship status: Not on file ??? Intimate partner violence Fear of current or ex partner: Not on file Emotionally abused: Not on file Physically abused: Not on file Forced sexual activity: Not on file Other Topics Concern ??? Special Diet Not Asked Social History Narrative ??? Not on file No family history on file. Social History Socioeconomic History ??? Marital status: Single Spouse name: Not on file ??? Number of children: Not on file ??? Years of education: Not on file ??? Highest education level: Not on file Occupational History ??? Not on file Social Needs ??? Financial resource strain: Not on file ??? Food insecurity Worry: Not on file Inability: Not on file ??? Transportation needs Medical: Not on file Non-medical: Not on file Tobacco Use ??? Smoking status: Current Every Day Smoker Packs/day: 0.25 Types: Cigarettes ??? Smokeless tobacco: Never Used Substance and Sexual Activity ??? Alcohol use: Not on file ??? Drug use: Yes Frequency: 7.0 times per week Types: Marijuana ??? Sexual activity: Not on file Lifestyle ??? Physical activity Days per week: Not on file Minutes per session: Not on file ??? Stress: Not on file Relationships ??? Social connections Talks on phone: Not on file Gets together: Not on file Attends hoahaoism service: Not on file Active member of club or organization: Not on file Attends meetings of clubs or organizations: Not on file Relationship status: Not on file ??? Intimate partner violence Fear of current or ex partner: Not on file Emotionally abused: Not on file Physically abused: Not on file Forced sexual activity: Not on file Other Topics Concern ??? Special Diet Not Asked Social History Narrative ??? Not on file Review of Systems Constitutional: As per HPI Eyes: Negative for visual changes CV: Negative for chest pain Pulm: Negative for dyspnea GI: As per HPI : Negative for dysuria, hematuria; Positive for heavy menses MSK: Negative for myalgias, arthralgias Skin: Negative for skin changes Neuro: Negative for weakness Remainder of ROS negative unless documented in HPI Physical Examination: BP 104/60 Pulse 66 Temp 98.4 ??F (Oral) Resp 16 Ht 1.727 m (5' 8 ) Wt 65.5 kg (144 lb 6.4 oz) SpO2 97% BMI 21.96 kg/m2 Gen: NAD HEENT: AT/NC, EOMI, oropharynx clear CV: RRR Pulm: Nonlabored respirations Abd: Soft, tender to palpation in lower quadrants, L worse than R MSK: WWP, no c/c/e Neuro: Moving all extremities spontaneously, no focal deficits Psych: Appropriate mood and affect Imaging Studies: CT abd/pelvis without contrast: (image and reads from OSH): Impression: - No CT evidence of obstructive uropathy or acute inflammatory process - Findings which may relate to mesenteric adenitis - There is a 4.4cm solid-appearing structure correlating with the area of the L ovary, this could relate to an enlarged left ovary or a left ovarian mass. Assessment/Plan: Ynes Phelps is a 14 year old female with likeyl tubo-ovarian abscess. - admit to Pediatrics, would agree with Pediatric gynecology consult - agree with IV antibiotics - No surgical intervention planned at this time - Please call Pediatric Surgery with any questions or complaints Patient seen and examined with my in-housekeeper supervisor, Dr. Lau, and discussed with attending, Dr. Conn. Nino Patel MD 09/26/2019 6:36 PM Attending Addendum I have personally seen and examined and reviewed the chart of Ynes Phelps and have independently reviewed and discussed, in detail, the treatment plan for this patient with our surgical team and thefamily. I confirm the segura elements of the plan of care. I spent 20 minutes with this patient and 50% of that time was spent in care coordination and counseling David Conn MD 10/02/2019 2:15 PM documented in this encounter ED Notes * Filomena Asencio RN - 09/26/2019 4:24 PM CDT This RN spoke with pt's dad, Mary Grace, who said he was on his way back to the hospital right now. * Katrin Rivas - 09/26/2019 2:19 PM CDT Provider contact with the patient: 09/26/2019 2:19 PM [facility] EMERGENCY DEPARTMENT Ynes Phelps [id number] History Chief Complaint Patient presents with ??? Abscess Access Note: 14 yo female coming by amb from [facility] ER for lower abd pain x1 month, today pain is severe, Labs and imaging done. CT and US. 13.7 wbc, has a uti, 10-20 wbc in urine leukocytes, CT showed 4.4 cm solid mass around left ovary. US sone 2.7 rounded ovarian abscess. IV abx ordered. Pt arrives awake and alert. Denies pain in triage. Chief complaint narrative was entered by triage nurse, not by physician. I have read the resident/medical student/ASIAN STUDIES PROFESSOR history. Unless appended by me below, I agree with findings as documented. HPI History provided per: pt and father Ynes Phelps is a 14 year old female with no significant past medical history who presents with concern for L tubo ovarian abscess. Pt presented to an OSH ED this morning due to bilateral lower abdominal pain that has been intermittent for the past 2-3 weeks. The pain comes on randomly and lasts for minutes to hours. Nothing makes it feel better. She has tried taking Tylenol and ibuprofen for thepain, which did not help. The pain felt worse this morning, and she was doubled over crying. No vomiting or fevers. Pt has not had a bowel movement since two days ago, and her BM two days ago was hard (she normally has soft daily BMs). Her appetite has been normal. She denies dysuria or change in ur inary frequency. She currently has her menstrual period, but her abdominal pain feels different than her typical menstrual cramps. She denies any other vaginal discharge and denies any history of sexual activity. At the OSH ED, pt's labs were notable for a mildly elevated WBC count of 13.7 (75% neutrophils), CMP was unremarkable, UA +10-20 WBCs and a few RBCs, urine hcg neg, GC/CT pending, CT abdomen/pelvis showed a 4.4 cm solid-appearing structure in the area of the L ovary, and a pelvic US showed a 5 cm tubular lobulated complex structure suggestive of a tubo ovarian abscess. Pt received a dose of IV doxycycline. Pt was then transferred to the ED for further management. Currently, she denies abdominal pain. PMH: no chronic illnesses; no hospitalizations; no surgeries; all immunizations up-to-date per father. No Known Allergies Past Medical History: Diagnosis Date ??? No known problems Social History Socioeconomic History ??? Marital status: Single Spouse name: Not on file ??? Number of children: Not on file ??? Years of education: Not on file ??? Highest education level: Not on file Occupational History ??? Not on file Social Needs ??? Financial resource strain: Not on file ??? Food insecurity Worry: Not on file Inability: Not on file ??? Transportation needs Medical: Not on file Non-medical: Not on file Tobacco Use ??? Smoking status: Current Every Day Smoker Packs/day: 0.25 Types: Cigarettes ??? Smokeless tobacco: Never Used Substance and Sexual Activity ??? Alcohol use: Not on file ??? Drug use: Yes Frequency: 7.0 times per week Types: Marijuana ??? Sexual activity: Not on file Lifestyle ??? Physical activity Days per week: Not on file Minutes per session: Not on file ??? Stress: Not on file Relationships ??? Social connections Talks on phone: Not on file Gets together: Not on file Attends hoahaoism service: Not on file Active member of club or organization: Not on file Attends meetings of clubs or organizations: Not on file Relationship status: Not on file ??? Intimate partner violence Fear of current or ex partner: Not on file Emotionally abused: Not on file Physically abused: Not on file Forced sexual activity: Not on file Other Topics Concern ??? Special Diet Not Asked Social History Narrative ??? Not on file Family History Problem Relation Name Age of Onset ??? Cancer - Ovarian Neg Hx ??? Cancer - Breast Neg Hx Discharge Medication List as of 09/28/2019 12:54 PM START taking these medications Details levoFLOXacin (LEVAQUIN) 500 MG tablet Disp-13 tablet, R-0, Take 1 tablet by mouth once daily for 13days, Print metroNIDAZOLE (FLAGYL) 500 MG tablet Disp-26 tablet, R-0, Take 1 tablet by mouth 2 times daily for 13 days, Print Review of Systems All relevant systems reviewed and all negative except as noted in resident/medical student/ASIAN STUDIES PROFESSOR and attending HPI/ROS. Gen: negative Skin: negative HEENT: negative CV: negative Resp: negative GI: +lower abdominal pain Musculoskeletal: negative Neurologic: negative Psychiatric: negative Physical Exam I have reviewed the resident/medical student/ASIAN STUDIES PROFESSOR physical exam. Unless appended by me below, I agreewith the PE as documented. Vitals: 09/27/19 1940 09/28/19 0310 09/28/19 0810 09/28/19 1155 BP: 130/70 120/53 113/51 121/67 Pulse: (!) 110 78 68 78 Resp: 18 16 16 18 Temp: 98.8 ??F (37.1 ??C) 98.2 ??F (36.8 ??C) 98.1 ??F (36.7 ??C) 97.9 ??F (36.6 ??C) SpO2: 97% 98% Weight: Height: Constitutional: adolescent female in NAD HEENT: head NC/AT, PERRL, no drainage from ears or nose, MMM, oropharynx not injected Cardiovascular: RRR, no murmur Pulmonary: Normal respiratory effort. Breath sounds clear and equal bilaterally; no wheezing, rales, or rhonchi. Abdominal: soft, nondistended, +mild tenderness to palpation in suprapubic area, +mild tenderness to palpation in RLQ, no tenderness to palpation in LLQ Extremities: WWP Neurological: alert, follows commands, responds to questions, moves all four extremities well Skin: No rash or lesions. Nursing notes and vitals reviewed. Procedures Procedures Labs/Orders Orders Placed This Encounter ??? CHLAMYDIA + GC AMPLIFIED PROBE (STL) ??? TRICHOMONAS RAPID TEST ??? CBC W AUTO DIFFERENTIAL ??? C-REACTIVE PROTEIN ??? HIV-1 HIV-2 ANTIBODY + HIV P24 AG PANEL ??? SYPHILIS ANTIBODY CASCADING REFLEX ??? IP CONSULT TO PEDIATRIC SURGERY ??? DISCONTD: dextrose 5% and 0.9% NaCl with KCL 20 mEq infusion ??? DISCONTD: cefTRIAXone (ROCEPHIN) pediatric IV 2,000 mg ??? cefOXitin (MEFOXIN) pediatric IV 2,000 mg ??? DISCONTD: doxycycline hyclate (VIBRAMYCIN) 100 mg in 0.9% NaCl pediatric IV ??? DISCONTD: cefOXitin (MEFOXIN) pediatric IV 2,000 mg ??? DISCONTD: doxycycline monohydrate capsule 100 mg ??? levoFLOXacin (LEVAQUIN) 500 MG tablet ??? metroNIDAZOLE (FLAGYL) 500 MG tablet No orders to display Hospital Encounter on 09/26/19 TRICHOMONAS RAPID TEST Result Value Ref Range Trichomonas Rapid Test Negative Negative CBC W AUTO DIFFERENTIAL Result Value Ref Range WBC 8.6 4.5 - 14.5 x10E9/L WBC Corrected RBC 3.91 (L) 4.10 - 5.10 x10E12/L Hemoglobin 11.0 (L) 12.0 - 16.0 gm/dL Hematocrit 34.6 (L) 36.0 - 47.0 % MCV 88.5 78.0 - 98.0 fl MCH 28.1 25.0 - 35.0 pg MCHC 31.8 31.0 - 37.0 gm/dL Platelet Count 228 100 - 400 x10E9/L RDW-CV 13.9 11.5 - 14.0 % MPV 10.8 (H) 6.0 - 9.5 fl Neutrophils % 67.1 (H) 24.0 - 66.0 % Lymphocytes % 23.9 22.0 - 61.0 % Monocytes % 7.5 3.0 - 15.0 % Eosinophils % 0.9 0.0 - 10.0 % Basophils % 0.3 % Immature Granulocytes 0.3 % Neutrophil Absolute 5.77 1.08 - 9.57 x10E9/L Lymphocytes Absolute 2.06 0.99 - 8.85 x10E9/L Monocytes Absolute 0.65 0.14 - 2.18 x10E9/L Eosinophils Absolute 0.08 0 - 1.45 x10E9/L Basophils Absolute 0.03 0 - 0.29 x10E9/L Immature Granulocytes Absolute 0.03 0 - 0.15 x10E9/L nRBC Auto 0 /100 WBC C-REACTIVE PROTEIN Result Value Ref Range C-Reactive Protein 2.50 (H) <=0.50 mg/dL HIV-1 HIV-2 ANTIBODY + HIV P24 AG PANEL Result Value Ref Range HIV1/2 Ab + P24 Ag Non Reactive Non Reactive SYPHILIS ANTIBODY CASCADING REFLEX Result Value Ref Range Treponema pallidum Antibody Non Reactive Non Reactive ED Course Initial Assessment & Plan: 14 year old female with no significant past medical history who presents with concern for L tubo ovarian abscess. Pt has already had labs and imaging at the [facility] ED. Will consult the surgery team for evaluation. Surgery team recommends continued treatment for PID (pt will need to receive ceftriaxone in addition to doxycycline) and admission to pediatrics for pain control and close monitoring of clinical status. Surgery will continue to follow pt on the inpatient floor. Medical Decision Making Differential Diagnosis: tubo ovarian abscess versus PID versus ovarian cyst Medical Decision Making The total time providing critical care (excluding time spent for procedures) was: 0 minutes. Clinical Impression and Disposition Final Diagnosis: Final diagnoses: Left tubo-ovarian abscess * Rosangela Hutchinson MD - 09/26/2019 1:50 PM CDT EMERGENCY DEPARTMENT 09/26/2019 Dear Doctor, We had the pleasure of caring for your patient, Ynes Phelps in our emergency department on 09/26/2019. A note from the provider(s) who cared for your patient is attached. Should you wish to access any laboratory results, please call . Should you wish to access any radiology results, please call , option 3. In addition, you can access patient information 24 hours a day, from any computer, through [employer], the online version of our electronic medical record. If you would like to use this service, please call Pratibha Mckeon, Connectivity Coordinator, at . We appreciate the opportunity to care for your patients. If you would like additional information, please call the emergency department directly at . Sincerely, Rosangela Hutchinson MD Division of Emergency Medicine [facility], [place] [facility] [place] EMERGENCY DEPARTMENT Ynes Phelps [id number] [facility] EMERGENCY DEPT History Chief Complaint Patient presents with ??? Abscess Access Note: 14 yo female coming by amb from [facility] ER for lower abd pain x1 month, today pain is severe, Labs and imaging done. CT and US. 13.7 wbc, has a uti, 10-20 wbc in urine leukocytes, CT showed 4.4 cm solid mass around left ovary. US sone 2.7 rounded ovarian abscess. IV abx ordered. Pt arrives awake and alert. Denies pain in triage. HPI Previously healthy 14 y/o female transferred from OSH due to concern for ovarian abscess. Pt reports symptoms initially began with abdominal pain that has been going on for a few weeks. Located bilateral lower abdomen, comes and goes. No exacerbating or alleviating factors. Can last from 10 minutesto hours. Tried ibuprofen and tylenol, didn't help. No dysuria, no malodorous urine, frequency, urgency. No vomiting or diarrhea. Has some constipation. Last BM 2 days ago. Typically has BM everyday.Pain improves slightly after bowel movement. Good PO. No fevers. No cough, congestion. Periods are regular--come monthly, typically last 7 days, has significant cramping with them. Current abdominal pain feels different than normal menstrual cramps. Currently menstruating. Is sexually active and does not consistently use protection. Denies any abnormal discharge. No history of STDs. OSH work up: CBC with leukocytosis (WBC 13.7) and neutrophil predominance (75.6) CMP wnl UA with blood, leukocytes, protein, ketones (currently menstruating) Urine hcg negative CT abdomen/pelvis with 4.4 cm solid appearing structure correlating with the area of the left ovary, this could relate to an enlarged left ovary or a left ovarian mass. US pelvic: left ovary with tubular lobulated complex structure which demonstrates some motility, the appearence is suggestive for that of a tubo- ovarian abscess. Received doxycyline at OSH No pmh. No surgeries. IUTD. No past medical history on file. No past surgical history on file. Social History Socioeconomic History ??? Marital status: Not on file Spouse name: Not on file ??? Number of children: Not on file ??? Years of education: Not on file ??? Highest education level: Not on file Occupational History ??? Not on file Social Needs ??? Financial resource strain: Not on file ??? Food insecurity Worry: Not on file Inability: Not on file ??? Transportation needs Medical: Not on file Non-medical: Not on file Tobacco Use ??? Smoking status: Current Every Day Smoker Packs/day: 0.25 Types: Cigarettes ??? Smokeless tobacco: Never Used Substance and Sexual Activity ??? Alcohol use: Not on file ??? Drug use: Yes Frequency: 7.0 times per week Types: Marijuana ??? Sexual activity: Not on file Lifestyle ??? Physical activity Days per week: Not on file Minutes per session: Not on file ??? Stress: Not on file Relationships ??? Social connections Talks on phone: Not on file Gets together: Not on file Attends hoahaoism service: Not on file Active member of club or organization: Not on file Attends meetings of clubs or organizations: Not on file Relationship status: Not on file ??? Intimate partner violence Fear of current or ex partner: Not on file Emotionally abused: Not on file Physically abused: Not on file Forced sexual activity: Not on file Other Topics Concern ??? Special Diet Not Asked Social History Narrative ??? Not on file Medications No current outpatient medications on file. Review of Systems Review of Systems Constitutional: Negative for activity change, appetite change and fever. HENT: Negative for congestion and sore throat. Eyes: Negative for discharge. Respiratory: Negative for cough. Cardiovascular: Negative for chest pain. Gastrointestinal: Positive for abdominal pain and constipation. Negative for diarrhea, nausea and vomiting. Genitourinary: Negative for hematuria and vaginal discharge. Musculoskeletal: Negative for myalgias. Skin: Negative for rash. Neurological: Negative for headaches. BP 122/70 Pulse 76 Temp 98 ??F (36.7 ??C) (Oral) Resp 20 Ht 172.7 cm (68 ) Wt 65.5 kg (144 lb 6.4 oz) LMP 08/23/2019 (Exact Date) SpO2 98% BMI 21.96 kg/m?? Physical Exam Physical Exam HENT: Head: Normocephalic. Right Ear: External ear normal. Left Ear: External ear normal. Nose: Nose normal. Mouth/Throat: Mouth: Mucous membranes are moist. Eyes: Extraocular Movements: Extraocular movements intact. Conjunctiva/sclera: Conjunctivae normal. Pupils: Pupils are equal, round, and reactive to light. Neck: Musculoskeletal: Normal range of motion. Cardiovascular: Rate and Rhythm: Normal rate and regular rhythm. Pulmonary: Effort: Pulmonary effort is normal. Breath sounds: Normal breath sounds. Abdominal: General: Abdomen is flat. Bowel sounds are normal. Palpations: Abdomen is soft. Tenderness: There is abdominal tenderness. There is no guarding or rebound. Comments: Mild suprapubic tenderness Musculoskeletal: Normal range of motion. Skin: General: Skin is warm and dry. Capillary Refill: Capillary refill takes less than 2 seconds. Findings: No rash. Neurological: Mental Status: She is alert. Procedures Procedures Lab/SPO2 Interpretation Progress Notes ED Course 14 y/o F transferred from OSH due to concern for L tubo-ovarian abscess. Labs and imaging from OSH as above. Pt overall well appearing on exam. Vitals stable. - GC/chlamydia, trich - surgery consult - NPO for now 3:17 PM Spoke with surgery. They will come to ER to evaluate her. 6:00 PM Surgery recommends admission for IV antibiotics. No surgical intervention needed at this time. - start cefoxitin and doxycycline - can have regular diet - admit to Gen Peds, Surgery will follow. Call surgery for any acute changes (acutely worsening pain, hemodynamically unstable, etc). - recommend [employer] consult in AM 6:25 PM Discussed with floor team. Admit to Gen Peds Clinical Impressions as of Sep 25 1925 Left tubo-ovarian abscess Medical Decision Making * Geetha Sam RN - 09/26/2019 1:05 PM CDT This RN received telephone report from EVIE Chen at [facility]. Pt is 14 yo F with 2-week hx of abdominal pain. Reports 0/10 pain at rest, but pain worsens with movement. Labs sent. WBC 13.7. Per EVIE Chen, pt is currently on her period. US transvaginal and abdominal completed and results showed Lovarian abscess. Pt given doxycycline and cefotan IV through 20 g peripheral IV access. VS as follows: HR 67, BP 108/45, SpO2 99% RA. Pt coming via EMS. documented in this encounter Plan of Treatment Not on file documented as of this encounter Procedures Procedure Name Priority Date/Time Associated Diagnosis Comments SYPHILIS ANTIBODY CASCADING REFLEX Timed 09/28/2019 11:54 AM CDT HIV-1 HIV-2 ANTIBODY + HIV P24 AG PANEL Timed 09/28/2019 11:54 AM CDT C-REACTIVE PROTEIN Routine 09/28/2019 7: 49 AM CDT CBC W AUTO DIFFERENTIAL Routine 09/28/2019 7:49 AM CDT CHLAMYDIA + GC AMPLIFIED PROBE STAT 09/26/2019 6:41 PM CDT TRICHOMONAS RAPID TEST STAT 09/26/2019 6:41 PM CDT documented in this encounter Results * SYPHILIS ANTIBODY CASCADING REFLEX (09/28/2019 11:54 AM CDT) Treponema pallidum Antibody Non Reactive Non Reactive 09/28/2019 7:31 PM CDT [facility] Comment: No Laboratory evidence of syphilis infection. ?? Note: ??Circulating antibodies may be low or undetectable in early infection. ??If recent exposure is suspected, re-draw sample in 2-4 weeks and repeat testing. Blood BLOOD SPECIMEN / Unknown Venipuncture / Unknown 09/28/2019 11:54 AM CDT 09/28/2019 12:08 PM CDT Nataliya Alvarez MD LAB - SEROLOGY ORDER MELI [facility] [address] [place] [address] * HIV-1 HIV-2 ANTIBODY + HIV P24 AG PANEL (09/28/2019 11:54 AM CDT) HIV1/2 Ab + P24 Ag Non Reactive Non Reactive 09/28/2019 1:00 PM CDT [facility] Blood BLOOD SPECIMEN / Unknown Venipuncture / Unknown 09/28/2019 11:54 AM CDT 09/28/2019 12:08 PM CDT Narrative [facility] - 09/28/2019 1:00 PM CDT No Laboratory evidence of HIV infection. Nataliya Alvarez MD LAB - CHEMISTRY [place] Performing Organization Address [facility]/ZIP Co de Phone Number [facility] [address] [place] [address] * (ABNORMAL) C-REACTIVE PROTEIN (09/28/2019 7:49 AM CDT) C-Reactive Protein 2.50(H) <=0.50 mg/dL 09/28/2019 8:49 AM T [facility] Blood BLOOD SPECIMEN / Unknown Lab Venipuncture / Unknown 09/28/2019 7:49 AM CDT 09/28/2019 8:08 AM CDT Virgie Garcia MD LAB - CHEMISTRY [place] Performing Organization Address [facility] Co de Phone Number [facility] [address] [place] [phone] * (ABNORMAL) CBC W AUTO DIFFERENTIAL (09/28/2019 7:49 AM CDT) WBC 8.6 4.5 - 14.5 x10E9/L 09/28/2019 8:27 AM T [facility] WBC Corrected 09/28/2019 8:27 AM T [facility] RBC 3.91(L) 4.10 - 5.10 x10E12/L 09/28/2019 8:27 AM T [facility] Hemoglobin 11.0(L) 12.0 - 16.0 gm/dL 09/28/2019 8:27 AM T [facility] Hematocrit 34.6(L) 36.0 - 47.0 % 09/28/2019 8:27 AM T [facility] MCV 88.5 78.0 - 98.0 fl 09/28/2019 8:27 AM T [facility] MCH 28.1 25.0 - 35.0 pg 09/28/2019 8:27 AM T [facility] MCHC 31.8 31.0 - 37.0 gm/dL 09/28/2019 8:27 AM T [facility] Platelet Count 228 100 - 400 x10E9/L 09/28/2019 8:27 AM [facility] RDW-CV 13.9 11.5 - 14.0 % 09/28/2019 8:27 AM [facility] MPV 10.8(H) 6.0 - 9.5 fl 09/28/2019 8:27 AM [facility] Neutrophils % 67.1(H) 24.0 - 66.0 % 09/28/2019 8:27 AM [facility] Lymphocytes % 23.9 22.0 - 61.0 % 09/28/2019 8:27 AM [facility] Monocytes % 7.5 3.0 - 15.0 % 09/28/2019 8:27 AM [facility] Eosinophils % 0.9 0.0 - 10.0 % 09/28/2019 8:27 AM [facility] Basophils % 0.3 % 09/28/2019 8:27 AM [facility] Immature Granulocytes 0.3 % 09/28/2019 8:27 AM [facility] Neutrophil Absolute 5.77 1.08 - 9.57 x10E9/L 09/28/2019 8:27 AM [facility] Lymphocytes Absolute 2.06 0.99 - 8.85 x10E9/L 09/28/2019 8:27 AM [facility] Monocytes Absolute 0.65 0.14 - 2.18 x10E9/L 09/28/2019 8:27 AM [facility] Eosinophils Absolute 0.08 0 - 1.45 x10E9/L 09/28/2019 8:27 AM [facility] Basophils Absolute 0.03 0 - 0.29 x10E9/L 09/28/2019 8:27 AM [facility] Immature Granulocytes Absolute 0.03 0 - 0.15 x10E9/L 09/28/2019 8:27 AM [facility] nRBC Auto 0 /100 WBC 09/28/2019 8:27 AM [facility] Blood BLOOD SPECIMEN / Unknown Lab Venipuncture / Unknown 09/28/2019 7:49 AM T 09/28/2019 8:08 AM T Virgie Garcia MD LAB - HEMATOLOGY ORD ERABLES Performing Organization Address [facility] Co de Phone Number [facility] [address] [place] [phone] * TRICHOMONAS RAPID TEST (09/26/2019 6:41 PM CDT) Trichomonas Rapid Test Negative Negative 09/26/2019 7:15 PM CDT [facility] Microbiology VAGINAL SWAB / Unknown Collection / Unknown 09/26/2019 6:41 PM CDT 09/26/2019 6:47 PM CDT Rosangela Hutchinson MD LAB - MICROBIOLOGY O RDERABLES Performing Organization Address [facility] de Phone Number [facility] [address] [place] [phone] * (ABNORMAL) CHLAMYDIA + GC AMPLIFIED PROBE (STL) (09/26/2019 6:41 PM CDT) Chlamydia Amplified Probe Positive( A) Negative 09/30/2019 2:44 PM CDT [facility] GC Amplified Probe Positive( A) Negative 09/30/2019 2:44 PM CDT [facility] Microbiology URINE / Unknown Collection / Unknown 09/26/2019 6:41 PM CDT 09/26/2019 6:45 PM CDT Narrative [facility] - 09/30/2019 2:44 PM CDT Results based on detection/no detection of ribosomal RNA by amplified method. Rosangela Hutchinson MD LAB - MICROBIOLOGY O RDERADARLENE Performing Organization Address [facility] Co de Phone Number [facility] [address] [place] [address], [facility] [phone] documented in this encounter Visit Diagnoses Diagnosis Left tubo-ovarian abscess Left tubo-ovarian abscess * Assessment & Plan Note - Graciela Sierra DO - 09/27/2019 1:12 PM CDTAssociated Problem(s): Left tubo-ovarian abscess Assessment: Ynes is a 14 y/o sexually active female presenting with left tub- ovarian abscess (TOA). Females who are hemodynamically stable [...] mild pain - I&Os - Vitals Q8h * Assessment & Plan Note - Francesca iWlson - 09/26/2019 8:11 PM CDTAssociated Problem(s): Left tubo-ovarian abscess Assessment: Ynes is a 14 y/o sexually active female presenting with left tub- ovarian abscess (TOA). Females who are hemodynamically stable [...] oxycodone for moderate-severe pain I&Os Vitals Q8h documented in this encounter Administered Medications Inactive Administered Medications - up to 3 most recent administrations Medication Order MAR Action Action Date Dose Rate Site cefOXitin (MEFOXIN) pediatric IV 2,000 mg 2,000 mg, at 100 mL/hr, Intravenous, ONCE, 1 dose, On Sun09/26/19 at 1900, Diluted in Normal Saline, Indication for anti-infective therapy: Documented infection, Site of anti-infective therapy: Urine/Genitourinary $ Given 09/26/2019 7:09 PM CDT 2,000 mg 100 mL/hr cefOXitin (MEFOXIN) pediatric IV 2,000 mg 2,000 mg, at 100 mL/hr, Intravenous, EVERY 6 HOURS, First dose on Sun09/27/19 at 0100, Until Discontinued, Diluted in Normal Saline, Indication for anti-infective therapy: Suspected infection, Site of anti-infective therapy: Intra-abdominal $ Given 09/28/2019 8:17 AM CDT 2,000 mg 100 mL/hr $ Given 09/28/2019 2:40 AM CDT 2,000 mg 100 mL/hr $ Given 09/27/2019 7:46 PM CDT 2,000 mg 100 mL/hr dextrose 5% and 0.9% NaCl with KCL 20 mEq infusion at 100 mL/hr, Intravenous, CONTINUOUS, Starting on Sun09/26/19 at 1515, Until Sun09/28/19 at 1248 $ New Bag/Syringe 09/27/2019 8:37 PM CDT 100 mL/hr Current Rate 09/27/2019 7:01 PM CDT 100 mL/hr $ New Bag/Syringe 09/27/2019 11:02 AM CDT 100 m L/hr doxycycline monohydrate capsule 100 mg 100 mg, Oral, EVERY 12 HOURS, First dose on Sun09/26/19 at 2100, Until Discontinued, Indication for anti-infective therapy: Suspected infection, Site of anti-infective therapy: Intra-abdominal $ Given 09/28/2019 8:17 AM CDT 100 mg $ Given 09/27/2019 7:46 PM CDT 100 mg $ Given 09/27/2019 8:06 AM CDT 100 mg documented in this encounter Active and Recently Administered Medications Times are shown in CDT. Scheduled Medication Order 09/26/2019 09/27/2019 09/28/2019 cefOXitin (MEFOXIN) pediatric IV 2,000 mg (COMPLETED) 2,000 mg, at 100 mL/hr, Intravenous, ONCE, 1 dose, On Sun09/26/19 at 1900, Diluted in Normal Saline, Indication for anti-infective therapy: Documented infection, Site of anti-infective therapy: Urine/Genitourinary 1908 ($ Given - Provider: Filomena Asencio RN)1939 (Rx Stopped - Provider: Jaida Diaz RN) cefOXitin (MEFOXIN) pediatric IV 2,000 mg 2,000 mg, at 100 mL/hr, Intravenous, EVERY 6 HOURS, First dose on Sun09/27/19 at 0100, Until Discontinued, Diluted in Normal Saline, Indication for anti-infective therapy: Suspected infection, Site of anti-infective therapy: Intra-abdominal 0136 ($ Given - Provider: Miya Hanson RN)0206 (Rx Stopped - Provider: Al Neville RN)0805 ($ Given - Provider: Hailee Becker RN)0835 (Rx Stopped - Provider: Hailee Becker RN)1433 ($ Given - Provider: Hailee Becker RN)1503 (Rx Stopped - Provider: Hailee Becker RN)1946 ($ Given - Provider: Hailee Nagel RN)2019 (Rx Stopped - Provider: Hailee Nagel RN) 0240 ($ Given - Provider: Hailee Nagel RN - Comment: five rights confirmed)0313 (Rx Stopped - Provider: Hailee Nagel RN)0817 ($ Given - Provider: Hailee Becker RN)0847 (Rx Stopped - Provider: Hailee Becker RN) doxycycline monohydrate capsule 100 mg 100 mg, Oral, EVERY 12 HOURS, First dose on Sun09/26/19 at 2100, Until Discontinued, Indication for anti-infective therapy: Suspected infection, Site of anti-infective therapy: Intra-abdominal 2148 ($ Given - Provider: Al Neville RN) 0806 ($ Given - Provider: Hailee Becker RN)1946 ($ Given - Provider: Hailee Nagel RN) 0817 ($ Given - Provider: Hailee Becker RN) Continuous Medication Order 09/26/2019 09/27/2019 09/28/2019 dextrose 5% and 0.9% NaCl with KCL 20 mEq infusion (CANCELED) at 100 mL/hr, Intravenous, CONTINUOUS, Starting on Sun09/26/19 at 1515, Until Sun09/28/19 at 1248 1507 ($ New Bag/Syringe - Provider: Kirti Null RN) 0038 (Stopped - Provider: Al Neville RN)0039 ($ New Bag/Syringe - Provider: Al Neville RN)0721 (Current Rate - Provider: Al Neville RN)1102 ($ New Bag/Syringe - Provider: Hailee Becker RN)190 (Current Rate - Provider: Hailee Becker RN)2036 ($ New Bag/Syringe - Provider: Hailee Nagel RN) documented in this encounter
--- OUTSIDE RECORDS SUMMARY | 2024-05-01 19:41 | XMS_ITS | Encounter Summary ---
Author Organization [facility] Address [address] [place] [address] Care Team Providers Care Chief Ultrasound Technologist Name Role Phone Unavailable Primary Care Provider Unavailabl e Reason for Visit * Reason Onset Date Comments Results 10/15/2019 Encounter Details Date Type Department Care Team (Late st Contact Info) Description 10/15/[address] [phone] Nataliya Alvarez MD [address] [place] [phone] Results Social History Tobacco Use Types Packs/Day Years [...] encounter Miscellaneous Notes * Telephone Encounter - Nataliya Alvarez MD - 10/15/2019 2:26 PM CDT Per Ynes's request (she wanted us to call her mom with STI screening results), I spoke with her Mom this afternoon and notified her about the positive Gonorrhea and Chlamydia results and the need for partner notification and treatment. Her inpatient antibiotic regimen was adequate treatment for the Gonorrhea and Chlamydia. Per Mom, she has been compliant with outpatient antibiotic regimen and has an Ob-[facility] [employer] Supervisor appointment this month that is a virtual visit, and if they are concerned on the virtual visit they will bring her in. Mom has also said she will schedule a PCP appointment in 3 months to get STI retesting done. Ynes has been doing well per Mom. documented in this encounter Plan of Treatment Not on file documented as of this encounter Visit Diagnoses Not on filedocumented in this encounter
--- OUTSIDE RECORDS SUMMARY | 2024-05-01 19:41 | XMS_ITS | Clinical Summary ---
Author Organization [facility] Address [address] [place] [address] Care Team Providers Care Clay Press Operator Name Role Phone Unavailable Primary Care Provider Unavailabl e Source Comments [facility],non-owned Affiliates and Associated Physician Practices is amultiple site organization consisting of ambulatory clinics and hospital sitesin [place], [place], [place] and [place]. This disclosure is being madepursuant to the Care Everywhere program and may not contain all information available regarding this patient. Last updated 18.Fora Allergies No known active allergies Medications Be [...] oxycodone for moderate-severe pain I&Os Vitals Q8h Family History Medical History Relation Name Comments Cancer - Breast Neg Hx Cancer - Ovarian Neg Hx Social History Tobacco Use Types Packs/Day Years [...] Mass Index 21.96 09/26/2019 8:15 PM CDT Plan of Treatment Health Maintenance Due Date Last Done Comments PAP SMEAR 2003 PNEUMOCOCCAL VACCINE (1 of 2 - PCV) 2009 HPV VACCINE (1 - 3-dose series) 2018 CHLAMYDIA/GONORRHEA SCREENING 09/25/2020 09/26/2019 HEPATITIS C SCREENING 03/06/2021 DTAP/TDAP/TD VACCINES (1 - Tdap) 2022 HEPATITIS B VACCINE (1 of 3 - 19+ 3-dose series) 2022 DEPRESSION SCREENING 05/07/2023 COVID-19 VACCINE (2023-2 5 season) 2024 INFLUENZA VACCINE (#1) 2024 03/10/2022 ZOSTER VACCINE (1 of 2) 2053 HIV SCREENING Completed 09/28/2019 HIB VACCINE Aged Out No longer eligi ble based on patient's age to complete this topic MENINGOCOCCAL VACCINE Aged Out No sarah osvaldo eligible based on patient's age to complete this topic Procedures Procedure Name Priority Date/Time Associated Diagnosis Comments HIV-1 HIV-2 ANTIBODY + HIV P24 AG PANEL Timed 09/28/2019 11:54 AM CDT CHLAMYDIA + GC AMPLIFIED PROBE STAT 09/26/2019 6:41 PM CDT from Last 3 Months or Most Recently Relevant to Health Maintenance Results * HIV-1 HIV-2 ANTIBODY + HIV P24 AG PANEL (09/28/2019 11:54 AM CDT) Pathologist [facility] HIV1/2 Ab + P24 Ag Non Reactive Non Reactive 09/28/2019 1:00 PM CDT [facility] Blood BLOOD SPECIMEN / Unknown Venipuncture / Unknown 09/28/2019 11:54 AM CDT 09/28/2019 12:08 PM CDT Narrative [facility] - 09/28/2019 1:00 PM CDT No Laboratory evidence of HIV infection. Nataliya Alvarez MD LAB - CHEMISTRY [place] Performing Organization Address City/State/[facility] Co de Phone Number [facility] [address] [place] [address] * (ABNORMAL) CHLAMYDIA + GC AMPLIFIED PROBE (STL) (09/26/2019 6:41 PM CDT) Chlamydia Amplified Probe Positive( A) Negative 09/30/2019 2:44 PM CDT [facility] GC Amplified Probe Positive( A) Negative 09/30/2019 2:44 PM CDT [facility] Microbiology URINE / Unknown Collection / Unknown 09/26/2019 6:41 PM CDT 09/26/2019 6:45 PM CDT Narrative [facility] - 09/30/2019 2:44 PM CDT Results based on detection/no detection of ribosomal RNA by amplified method. Rosangela Hutchinson MD LAB - MICROBIOLOGY O RDERABLES [facility] [address] [place] [address], [facility] [phone] from Last 3 Months or Most Recently Relevant to Health Maintenance Advance Directives * Full Code (Latest Code Status on File) Date Activated Date Inactivated Comments 09/26/2019 8:15 PM 09/28/2019 3:23 PM
--- OUTSIDE RECORDS SUMMARY | 2024-05-01 19:41 | XMS_ITS | Encounter Summary ---
Author Organization [facility] Address [facility] [address] Care Team Providers Care Talent Acquisition Sourcer Name Role Phone Unavailable Primary Care Provider Unavailabl e Reason for Visit * Reason Comments Ultrasound * Evaluate & Treat (Routine) - Closed Specialty Diagnoses / Procedures Referred By Contac t Referred To Contact Maternal Medicine Diagnoses High risk teen (HCC) Supervision of young primigravida, unspecified trimester (HCC) Smoking (tobacco) complicating , unspecified trimester (HCC) Drug use complicating , unspecified trimester (HCC) Marijuana use Procedures [place] FULL ROUT OBSTE CARE,VAGINAL DELEstella Martinez MD [address] [address] [facility] [address] [place] [id number] Referral ID Status Reason Start Date Expiration Date Visits Re quested Visits Authorized [id number] Closed 10/31/2021 10/31/2022 20 20 Encounter Details Date Type Department Care Team (Latest Contact Info) Description 10/31/2021 2:23 PM CDT - 10/31/2021 11:59 PM CDT Hospital Encounter [facility]aternal [facility] Care [address] [place] [id number] Ross Dunn MD Discharge Disposition: Home or Self Care Social History Tobacco Use Types Packs/Day Years Used Date Smoking Tobacco: Every Day Cigarettes Smokeless Tobacco: Never Comments Yes Sex and Gender Information Value Date Recorded [...] No 09/27/2019 documented as of this encounter Plan of Treatment Not on file documented as of this encounter Procedures Procedure Name Priority Date/Time Associated Diagnosis Comments SONOGRAM - COMPLETE Routine 10/31/2021 2 :28 PM CDT Encounter for anatomic survey (HCC) 21 weeks gestation of (HCC) documented in this encounter Results * SONOGRAM - COMPLETE (10/31/2021 2:28 PM CDT) Anatomical Region Laterality Modality Other 10/31/2021 2:28 PM CDT Narrative 10/31/2021 3:48 PM CDT ? [facility] ? [facility] ?PHONE: ??FAX: Pat. Name: ?BRIDGER ESPAÑA. No: ?[id number] Study Date: ?? 10/31/2021 ??2:28pm , Age: ? 2005, 16 Pregnancies: ?? 1 Height: ? 69 in Weight: ? 155 lb LMP: ?Unknown GA by US: ? 21w1d ?? IKER: 03/12/2022 GA Selected: ??21w2d (From Known E) IKER: ?2022 Referring MD: Akilah Hanson MD Compensation Director: ??Jaclyn Kirkland RDMS CPT4: ? 53121,01643 BMI: ?22.89 Hist/Ind: ? Anatomy Screen ?LR NIPT MEASUREMENTS & AGE ? GROWTH EVALUATION Measurement ??GA ? Range ? Srce %for GA Ratios ----- ---- ------- BPD ??5.1 cm 21w2d (01b4i-92k4l) Hadl BPD 50% FL/BPD 0.71 HC ??18.8 cm 21w1d (51l4e-71r7u) Hadl HC ??30% FL/AC ??0.22 AC ??16.4 cm 21w3d (76f0i-37j4m) Hadl AC ??48% HC/AC ??1.15 (1.05 - 1.24) FL ?? 3.6 cm 21w3d (47r3a-05k7o) Hadl FL ??43% CI ? 0.76 (0.70 - 0.86) HL ?? 3.5 cm 21w6d (70x5b-07b2u) Renato HL ??59% Cere 2.1 cm 19w6d (95j1f-02e2y) Hill Cere14% GA for sonogram 21w1d (38j6o-00s4n) ?? Weight Estimate: based on (AC,FL) Hadlock ? Weight: 425 gm (360-491gm) Hadloc ? : 0lbs, 15oz ? Normal: 422 gm (316-527gm) Hadloc ? Wt% ? 54% for 21w2d Cervix: ??Length: 4.9 cm ??Approach: transvaginal Heart Rate: 159 bpm Amniotic Fluid Index: 05.3cm (Deepest Pocket) EVAL, PLACENTA Presentation: cephalic Umbilical Cord: 3 Vessels Placenta: posterior Heart Rate: 159 bpm Amniotic Fluid Volume: normal Anatomy!Normal!Abnormal!Suboptimal!Prev. Seen!Comments Cranium ?! ?? x ??! ?! ?! ?! Mdl (CSP/Thal! ?? x ??! ?! ?! ?! Ventricles ?? ! ?? x ??! ?! ?! ?! Choroid Plexu! ?? x ??! ?! ?! ?! Cerebellum ?? ! ?? x ??! ?! ?! ?! Cerebellar Ve! ?? x ??! ?! ?! ?! Cisterna M. ??! ?? x ??! ?! ?! ?! Nuchal Fold ??! ?? x ??! ?! ?! ?! Orbits ? ! ?? x ??! ?! ?! ?! Profile ?! ?? x ??! ?! ?! ?! Nasal Bone ?? ! ?? x ??! ?! ?! ?! Lip ?! ?? x ??! ?! ?! ?! Maxilla ?! ?? x ??! ?! ?! ?! Mandible ? ! ?? x ??! ?! ?! ?! Neck ? ! ?? x ??! ?! ?! ?! Spine ?! ?? x ??! ?! ?! ?! Lungs ?! ?? x ??! ?! ?! ?! 4 Chamber Hea! ?? x ??! ?! ?! ?! LVOT ? ! ?? x ??! ?! ?! ?! RVOT ? ! ?? x ??! ?! ?! ?! 3 Vessel View! ?? x ??! ?! ?! ?! 3 Vessel Trac! ?? x ??! ?! ?! ?! Cross-over ?? ! ?? x ??! ?! ?! ?! Ductal Arch ??! ?? x ??! ?! ?! ?! Aortic Arch ??! ?? x ??! ?! ?! ?! Caval View ?? ! ?? x ??! ?! ?! ?! Situs ?! ?? x ??! ?! ?! ?! Diaphragm ?! ?? x ??! ?! ?! ?! Stomach ?! ?? x ??! ?! ?! ?! Liver ?! ?? x ??! ?! ?! ?! Bowel ?! ?? x ??! ?! ?! ?! Kidneys ?! ?? x ??! ?! ?! ?! Bladder ?! ?? x ??! ?! ?! ?! 3 Vessel Cord! ?? x ??! ?! ?! ?! Cord In! ?? x ??! ?! ?! ?! Upper Extremi! ?? x ??! ?! ?! ?! Hands ?! ?? x ??! ?! ?! ?! Lower Extremi! ?? x ??! ?! ?! ?! Feet ? ! ?? x ??! ?! ?! ?! External Marilynn! ?? x ??! ?! ?! ?!Demonstrated, ?family does not ?wish to know ?gender Placental Cor! ?? x ??! ?! ?! ?! CLINICAL SUMMARY Study Number: 1 ??A single fetus is seen in cephalic presentation. ?? The measurements today are consistent with appropriate size for the IKER provided. ??The IKER is based on a prior outside ultrasound (confirmed). ??The amniotic fluid volume is within normal limits. ?? IMPRESSION: Single, live intrauterine at 21w2d ?? size is consistent with established gestational age ?? Amniotic fluid volume: within normal limits ?? Reassuring transvaginal cervical length ?? No major malformations were seen within the limitations of ultrasound. ?? RECOMMEND: Follow up as clinically indicated Thank you for allowing us the opportunity to care for your patient. ?? Ross Dunn MD <Electronic Signature> ??10/31/2021 03:48pm Akilah ADAMS ORDERABLE S documented in this encounter Visit Diagnoses Diagnosis Encounter for anatomic survey (HCC)- Primary Encounter for anatomic survey 21 weeks gestation of (HCC) state, incidental documented in this encounter
--- OUTSIDE RECORDS SUMMARY | 2024-05-01 19:41 | XMS_ITS | Patient Health Summary ---
Author Organization [facility] [employer] Address [address] [facility] [place] [address] Care Team Providers Care Program Counselor Name Role Phone Unavailable Primary Care Provider Unavailabl e Note from [facility] [employer] [facility] [employer],non-owned Affiliates and Associated Physician Practices is amultiple site organization consisting of ambulatory clinics and hospital sitesin [place], [place], [place] and [place]. This disclosure is being madepursuant to the Care Everywhere program and may not contain all information available regarding this patient. Last updated 18.[facility] [employer] Allergies No known active allergies Medications Be aware that medications may not be up to date on this document. Always verify current medications with the patient. No known medications Active Problems Problem Noted Date Diagnosed Date Left tubo-ovarian abscess 09/26/2019 Social History Tobacco Use Types Packs/Day Years [...] Mass Index 21.96 09/26/2019 8:15 PM CDT Procedures * SONOGRAM - COMPLETE(Performed 10/31/2021) Performed for Encounter for anatomic survey (HCC), 21 weeks gestation of (HCC) * SYPHILIS ANTIBODY CASCADING REFLEX(Performed 09/28/2019) * HIV-1 HIV-2 ANTIBODY + HIV P24 AG PANEL(Performed 09/28/2019) * C-REACTIVE PROTEIN(Performed 09/28/2019) * CBC W AUTO DIFFERENTIAL(Performed 09/28/2019) * TRICHOMONAS RAPID TEST(Performed 09/26/2019) * CHLAMYDIA + GC AMPLIFIED PROBE(Performed 09/26/2019) Results * SONOGRAM - COMPLETE (10/31/2021 2:28 PM CDT) Anatomical Region Laterality Modality Other 10/31/2021 2:28 PM CDT Narrative 10/31/2021 3:48 PM CDT ? [facility] Maternal Medicine ? [facility] Care Center ?PHONE: ??FAX: Pat. Name: ?BRIDGER ESPAÑA Pat. No: ?[id number] Study Date: ?? 10/31/2021 ??2:28pm , Age: ? 2005, 16 Pregnancies: ?? 1 Height: ? 69 in Weight: ? 155 lb LMP: ?Unknown GA by US: ? 21w1d ?? IKER: 03/12/2022 GA Selected: ??21w2d (From Known E) IKER: ?2022 Referring MD: Akilah Hanson MD Powder Cutting Operator: ??Jaclyn Kirkland RDMS CPT4: ? 43310,[id number] BMI: ?22.89 Hist/Ind: ? Anatomy Screen ?LR NIPT MEASUREMENTS & AGE ? GROWTH EVALUATION Measurement ??GA ? Range ? Srce %for GA Ratios ----- ---- ------- BPD ??5.1 cm 21w2d (70s7e-41o9g) Hadl BPD 50% FL/BPD 0.71 HC ??18.8 cm 21w1d (50q3f-85d0d) Hadl HC ??30% FL/AC ??0.22 AC ??16.4 cm 21w3d (45h8e-88j0a) Hadl AC ??48% HC/AC ??1.15 (1.05 - 1.24) FL ?? 3.6 cm 21w3d (01a5j-13b0o) Hadl FL ??43% CI ? 0.76 (0.70 - 0.86) HL ?? 3.5 cm 21w6d (74h0q-79a6w) Renato HL ??59% Cere 2.1 cm 19w6d (03v1n-90a9d) Hill Cere14% GA for sonogram 21w1d (95w3n-08i0z) ?? Weight Estimate: based on (AC,FL) Hadlock [...] Dunn MD <Electronic Signature> ??10/31/2021 03:48pm Akilah Conteh PA-C [facility] ORDERABLE S * SYPHILIS ANTIBODY CASCADING REFLEX (09/28/2019 11:54 AM CDT) Treponema pallidum Antibody Non Reactive Non Reactive 09/28/2019 7:[address] [facility] Comment: No Laboratory evidence of syphilis infection. ?? Note: ??Circulating antibodies may be low or undetectable in early infection. ??If recent exposure is suspected, re-draw sample in 2-4 weeks and repeat testing. Blood BLOOD SPECIMEN / Unknown Venipuncture / Unknown 09/28/2019 11:54 AM CDT 09/28/2019 12:08 PM CDT Nataliya Alvarez MD LAB - SEROLOGY ORDER MELI Performing Organization Address City/[facility] Co de Phone Number [facility] [address] [place] [address] * HIV-1 HIV-2 ANTIBODY + HIV P24 AG PANEL (09/28/2019 11:54 AM CDT) HIV1/2 Ab + P24 Ag Non Reactive Non Reactive 09/28/2019 1:00 PM CDT [facility] Blood BLOOD SPECIMEN / Unknown Venipuncture / Unknown 09/28/2019 11:54 AM CDT 09/28/2019 12:08 PM CDT Narrative [facility] - 09/28/2019 1:00 PM CDT No Laboratory evidence of HIV infection. Nataliya Alvaerz MD LAB - CHEMISTRY [place] Performing Organization Address City/[facility]/ZIP Co de Phone Number [facility] [address] [place] [address] * (ABNORMAL) C-REACTIVE PROTEIN (09/28/2019 7:49 AM CDT) [facility] C-Reactive Protein 2.50(H) <=0.50 mg/dL 09/28/2019 8:49 AM T [facility] Blood BLOOD SPECIMEN / Unknown Lab Venipuncture / Unknown 09/28/2019 7:49 AM CDT 09/28/2019 8:08 AM CDT Virgie Garcia MD LAB - CHEMISTRY [place] [facility] Organization Address City/State/ZIP Co de Phone Number [facility] [address] [place] [address] * (ABNORMAL) CBC W AUTO DIFFERENTIAL (09/28/2019 7:49 AM CDT) [facility] WBC 8.6 4.5 - 14.5 x10E9/L 09/28/2019 8:27 AM [facility] WBC Corrected 09/28/2019 8:27 AM [facility] RBC 3.91(L) 4.10 - 5.10 x10E12/L 09/28/2019 8:27 AM [facility] Hemoglobin 11.0(L) 12.0 - 16.0 gm/dL 09/28/2019 8:27 AM [facility] Hematocrit 34.6(L) 36.0 - 47.0 % 09/28/2019 8:27 AM [facility] MCV 88.5 78.0 - 98.0 fl 09/28/2019 8:27 AM [facility] MCH 28.1 25.0 - 35.0 pg 09/28/2019 8:27 AM [facility] MCHC 31.8 31.0 - 37.0 gm/dL 09/28/2019 8:27 AM [facility] Platelet Count 228 100 - 400 x10E9/L 09/28/2019 8:27 AM [facility] RDW-CV 13.9 11.5 - 14.0 % 09/28/2019 8:27 AM [facility] MPV 10.8(H) 6.0 - 9.5 fl 09/28/2019 8:27 AM [facility] Neutrophils % 67.1(H) 24.0 - 66.0 % 09/28/2019 8:27 AM T [facility] Lymphocytes % 23.9 22.0 - 61.0 % 09/28/2019 8:27 AM T [facility] Monocytes % 7.5 3.0 - 15.0 % 09/28/2019 8:27 AM [facility] Eosinophils % 0.9 0.0 - 10.0 % 09/28/2019 8:27 AM T [facility] Basophils % 0.3 % 09/28/2019 8:27 AM [facility] Immature Granulocytes 0.3 % 09/28/2019 8:27 AM T [facility] Neutrophil Absolute 5.77 1.08 - 9.57 x10E9/L 09/28/2019 8:27 AM [facility] Lymphocytes Absolute 2.06 0.99 - 8.85 x10E9/L 09/28/2019 8:27 AM [facility] Monocytes Absolute 0.65 0.14 - 2.18 x10E9/L 09/28/2019 8:27 AM [facility] Eosinophils Absolute 0.08 0 - 1.45 x10E9/L 09/28/2019 8:27 AM [facility] Basophils Absolute 0.03 0 - 0.29 x10E9/L 09/28/2019 8:27 AM [facility] Immature Granulocytes Absolute 0.03 0 - 0.15 x10E9/L 09/28/2019 8:27 AM [facility] nRBC Auto 0 /100 WBC 09/28/2019 8:27 AM [facility] Blood BLOOD SPECIMEN / Unknown Lab Venipuncture / Unknown 09/28/2019 7:49 AM CDT 09/28/2019 8:08 AM T Virgie Garcia MD LAB - HEMATOLOGY ORD ERABLES [facility] [place] [address] * (ABNORMAL) CHLAMYDIA + GC AMPLIFIED PROBE (STL) (09/26/2019 6:41 PM CDT) Chlamydia Amplified Probe Positive( A) Negative 09/30/2019 2:44 PM CDT [facility] GC Amplified Probe Positive( A) Negative 09/30/2019 2:44 PM CDT [facility] Microbiology URINE / Unknown Collection / Unknown 09/26/2019 6:41 PM CDT 09/26/2019 6:45 PM CDT Narrative [facility] - 09/30/2019 2:44 PM CDT Results based on detection/no detection of ribosomal RNA by amplified method. Rosangela Hutchinson MD LAB - MICROBIOLOGY O FRIDA [facility] [address] [place] [id number] [phone] * TRICHOMONAS RAPID TEST (09/26/2019 6:41 PM CDT) Trichomonas Rapid Test Negative Negative 09/26/2019 7:15 PM CDT [facility] Microbiology VAGINAL SWAB / Unknown Collection / Unknown 09/26/2019 6:41 PM CDT 09/26/2019 6:47 PM CDT Rosangela Hutchinson MD LAB - MICROBIOLOGY O FRIDA [facility] [address] [place] [address]
== END 2024-07-20 23:59 | disposition home or self-care (01) ==
LOC: ANHOBOP 16:19
PROVIDERS: Visit Provider Student in an Organized Health Care Education/Training Program
DX: Z34.83 Encounter for supervision of other normal pregnancy, third trimester (principal); Z3A.28 28 weeks gestation of pregnancy
CPT/HCPCS: 59025; 76816

== ENCOUNTER 2025-03-23 13:45 | Outpatient (CLI) | payer OTHER, SELFPAY ==
[2025-03-23 14:38] LABS: Beta HCG Quantitative < 2.39 mIU/ML
--- OUTSIDE RECORDS SUMMARY | 2025-03-23 23:09 | XMS_ITS | Clinical Summary ---
Author Organization [facility] [employer] Address [address] [place] [address] Care Team Providers Care Maintenance Trainer Name Role Phone Unavailable Primary Care Provider Unavailabl e Source Comments [facility] [employer],non-owned Affiliates and Associated Physician Practices is amultiple site organization consisting of ambulatory clinics and hospital sitesin [place], [place], [place] and [place]. This disclosure is being madepursuant to the Care Everywhere program and may not contain all information available regarding this patient. Last updated 18.[employer] Allergies No known active allergies Medications * Be aware that medications may not be up to date on this document. Alwaysverify current medications with the patient. No known [...] Every Day Cigarettes Smokeless Tobacco: Never Comments No Sex and Gender Information Value Date Recorded Sex Assigned at Not on file Legal Sex Female 11:22 AM CDT Gender Identity Not on file Sexual Orientation Not on file Last Filed Vital Signs Vital Sign Reading Time Taken Comments Blood Pressure 121/67 09/28/2019 11:55 AM CDT Pulse 78 09/28/2019 11:55 AM CDT Temperature 36.6 C (97.9 F) 09/28/2019 11:55 AM CDT Respiratory Rate 18 09/28/2019 11:55 AM CDT Oxygen Saturation 98% 09/28/2019 3:10 AM CDT Inhaled Oxygen Concentration - - Weight 65.5 kg (144 lb 6.4 oz) 09/26/2019 8:15 P M CDT Height 172.7 cm (5' 8) 09/26/2019 8:15 PM CDT Body Mass Index 21.96 09/26/2019 8:15 PM CDT Plan of Treatment Health Maintenance Due Date Last Done Comments HPV VACCINE (1 - 3-dose series) 2018 MENINGOCOCCAL (Group B) VACC INE SHARED DECISION-MAKING (1 of 2 - Standard) 2019 CHLAMYDIA/GONORRHEA SCREENING 09/25/2020 09/26/2019 HEPATITIS C SCREENING 03/06/2021 DTAP/TDAP/TD VACCINES (1 - Tdap) 2022 HEPATITIS B VACCINE (1 of 3 - 19+ 3-dose series) 2022 PNEUMOCOCCAL VACCINE (1 of 2 - PCV) 2022 PAP SMEAR 2024 DEPRESSION SCREENING 05/07/2024 COVID-19 VACCINE (1 - 2024-2 6 season) 2025 INFLUENZA VACCINE (#1) 2025 03/10/2022 ZOSTER VACCINE (1 of 2) 2053 HIV SCREENING Completed 09/28/2019 HIB VACCINE Aged Out No longer eligi ble based on patient's age to complete this topic MENINGOCOCCAL GROUPS A/C/Y/W VACCINE Aged Out No longer eligible b ased on patient's age to complete this topic [...] AG PANEL (09/28/2019 11:54 AM CDT) Pathologist [facility] HIV1/2 Ab + P24 Ag Non Reactive Non Reactive 09/28/2019 1:00 PM CDT [facility] Blood BLOOD SPECIMEN / Unknown Venipuncture / Unknown 09/28/2019 11:54 AM CDT 09/28/2019 12:08 PM CDT Narrative [facility] - 09/28/2019 1:00 PM CDT No Laboratory evidence of HIV infection. us Nataliya Alvarez MD LAB - CHEMISTRY ORDERABLES Fin al Result [facility] [address] [facility] [place] [address] * (ABNORMAL) CHLAMYDIA + GC AMPLIFIED PROBE (STL) (09/26/2019 6:41 PM CDT) Pathologist [facility] Chlamydia Amplified Probe Positive( A) Negative 09/30/2019 2:44 PM CDT [facility] GC Amplified Probe Positive( A) Negative 09/30/2019 2:44 PM CDT [facility] Microbiology URINE / Unknown Collection / Unknown 09/26/2019 6:41 PM CDT 09/26/2019 6:45 PM CDT Narrative [facility] - 09/30/2019 2:44 PM CDT Results based on detection/no detection of ribosomal RNA by amplified method. us Rosangela Hutchinson MD LAB - MICROBIOLOGY ORDERABLES Fi nal Result [facility] [address] [place] [address], [facility] [phone] from Last 3 Months or Most Recently Relevant to Health Maintenance Insurance MEDICAID [employer] [place] Advance Directives * Full Code (Latest Code Status on File) Date Activated Date Inactivated Comments 09/26/2019 8:15 PM 09/28/2019 3:23 PM
== END 2025-03-23 13:46 | disposition home or self-care (01) ==
LOC: ANHLAB 13:48
PROVIDERS: Visit Provider Student in an Organized Health Care Education/Training Program
DX: N92.6 Irregular menstruation, unspecified (principal)
CPT/HCPCS: 36415; 84702